=== PATIENT | female | born 1940 | race Caucasian/White ===

== ENCOUNTER → 2016-07-10 | Outpatient (CLI) | payer OTHER ==
[~2016-07-10] MED LIST: AMLO-114 PO; ASCO10003 PO; ASPI81TA21 PO; ATOR80TA PO; CARV12.5 PO; CARV6.252 PO; DIPH25TA24 PO; ESTROGEN TOP; FAMO20TA11 PO; KFL500HP PO; LOSA100T65 PO; METR-163 PO; MISCCAP80 PO; MULT-1027 PO; NITR0.4S UT; ONDA8TAB6 PO; PRLSR20 PO; PROC1TAB5 PO; TRAM-10 PO
--- NOTE | 2016-07-10 10:39 | DIAGNOSTIC IMAGING REPORT ---
DOUBLE CONTRAST UPPER GI SERIES CLINICAL HISTORY: Gastroparesis. COMPARISON STUDY: Upper GI series September 11, 2015. FLUOROSCOPY TIME: 1.4 minutes. FINDINGS: 23 fluoroscopic images were obtained. No esophageal mass or stricture was identified. No recurrent hiatal hernia is identified status post repair. Slight irregularity at the gastroesophageal junction is likely postsurgical. No extravasation was identified. There was mild to moderate reflux. Gastric fold pattern was normal. Gastric emptying appeared normal. Caliber of the duodenum and opacified jejunum was normal. IMPRESSION: 1. No recurrent hiatal hernia status post repair. Mild irregularity at the gastroesophageal junction is likely postsurgical. 2. [id number] reflux. Electronically signed by: Momo Araujo M.D. 07/10/2016 10:37 AM Dictated Date/Time: 07/10/2016 9:08 AM
== END | disposition home or self-care (01) ==
LOC: C.RAD 08:31
PROVIDERS: ATTEND Surgery
DX: K31.84 Gastroparesis (principal); K44.9 Diaphragmatic hernia without obstruction or gangrene

== ENCOUNTER 2017-01-27 11:18 | Day surgery (SDC) | payer OTHER ==
[2017-01-23 12:57] VITALS: BMI 21.0
[~2017-01-27] VITALS: Ht 157.5 cm; Wt 52.7 kg
[~2017-01-27 11:18] MED LIST changes: -AMLO-114 PO; -CARV6.252 PO; +CEFAZOLIN 2000 MG/60 ML D5W IV SCH; -KFL500HP PO; +LACTATED RINGER'S 1000ML 1,000 ML IV SCH; -LOSA100T65 PO; -MISCCAP80 PO; -PRLSR20 PO
[2017-01-27] MEDS ORDERED: KFL500HP PO (11:55)
[2017-01-27 12:06] VITALS: BP 142/92; PULSE 81; TEMP 36.6; O2SAT 98; Ht 157.5 cm; Wt 52.7 kg
[2017-01-27] MEDS ORDERED: MIDAZOLAM HCL 1 MG/ML 2ML VIAL ONE ×2 (12:17)
[2017-01-27] MEDS ORDERED: FENTANYL CITRATE INJ 50 MCG/1 ML 2 ML VIAL ONE (12:18)
--- NOTE | 2017-01-27 12:38 | History & Physical Bridge Note ---
H&P Re-Evaluation Bridge Note: I have examined the patient, reviewed the History & Physical and in the interval since the performance of the History & Physical I have noted the following changes of clinical significance: No changes noted
[2017-01-27] MEDS ORDERED: LIDOCAINE HCL 1% 20 ML VIAL ONE (12:52)
[2017-01-27] MEDS ORDERED: HEPARIN SOD (PORCINE) 1000 UNIT/ML 10 ML VIAL ONE (12:53)
[2017-01-27] MEDS ORDERED: BACITRACIN OINT 15 GM TUBE ONE (12:53)
[2017-01-27] MEDS ORDERED: BUPIVACAINE 0.5 % 5 MG/1 ML MPF 30ML VIAL ONE (12:53)
[2017-01-27] MEDS ORDERED: PROPOFOL IV EMULSION 10 MG/ML 20 ML VIAL IV ONE (13:54)
[2017-01-27] MEDS ORDERED: OXYCODONE/ACETAMINOPHEN 5-325 TAB PO PRN ×2 (14:15)
[2017-01-27] MEDS ORDERED: ONDANSETRON INJ 2 MG/ML 2 ML VIAL IV PRN (14:15)
[2017-01-27] MEDS ORDERED: SODIUM CHLORIDE 0.9% 1000ML 1,000 ML IV SCH (14:15)
--- NOTE | 2017-01-27 14:15 | [facility] Post Operative Brief Note ---
Immediate Operative Summary Operative Date Jan 27, 2017. Pre-Operative Diagnosis Pancreatic Cancer Post-Operative Diagnosis Pancreatic Cancer Procedure(s) Performed Infusaport Insertion, Right Internal Jugular vein Surgeon Dr. Oxana Auguste Drain Cleaner Plumber Surgeon(s) None per surgeon Estimated Blood Loss 5ml Findings patent Right internal jugular vein Fluids (cc crystalloids) 1000ml Specimens None per surgeon Drains none Anesthesia sedation + local Complication(s) None Disposition Recovery Room / PACU
--- NOTE | 2017-01-27 14:20 | Discharge Instructions ---
Discharge Instructions Date of Service Jan 27, 2017. Visit Reason for Visit: Pancreatic Cancer Discharge Discharge Diagnosis / Problem: S/P port placement Discharge Goals Goal(s): Decrease discomfort, Improve function Activity Recommendations Activity Limitations: per Instructions/Follow-up section Lifting Limitations: none Exercise/Sports Limitations: rest today May Resume Sexual Activity: when tolerated Shower/Bathe: may shower/bathe in 3 days Driving or Machine Use: resume 3 days after discharge Anesthesia . Post Anesthesia Instructions: If you have had General Anesthesia or IV Sedation: * Do not drive today. * Resume driving when surgeon permits. * Do not make important decisions or sign legal documents today. * Call surgeon for: 1. Temperature elevations greater than 101 degrees F. 2. Uncontrollable pain. 3. Excessive bleeding. 4. Persistent nausea and vomiting. 5. Medication intolerance (nausea, vomiting or rash). * For nausea and vomiting use only clear liquids such as: tea, soda, bouillon until nausea subsides, then gradually increase diet as tolerated. * If you have any concerns or questions, call your surgeon's office. If physician is unavailable and it is an emergency, call 911 or go to the nearest emergency room. . Instructions / Follow-Up Instructions / Follow-Up keep the dressing on for 4 days, she can take a shower on 01/31/2017, follow up 1 week, Diet Recommendations Recommended Home Diet: resume previous diet Procedures Procedures Performed: Infusaport Insertion, Right Internal Jugular vein Pending Studies Studies pending at discharge: no Medical Emergencies . Who to Call and When: Medical Emergencies: If at any time you feel your situation is an emergency, please call 911 immediately. . Non-Emergent Contact Non-Emergency issues call your: Surgeon Call Non-Emergent contact if: you have a fever, temperature is above 100.5, your pain is not controlled, your pain is worsening, wound has increased drainage, wound has increased redness . . "Provider Documentation" section prepared by Oxana Auguste. . [place] Drug Monitoring Program Search Results: no issues identified
--- NOTE | 2017-01-27 14:24 | Discharge Instructions ---
Discharge Instructions Date of Service Jan 27, 2017. Visit Reason for Visit: Pancreatic Cancer Discharge Discharge Diagnosis / Problem: S/P port placement Discharge Goals Goal(s): Decrease discomfort Activity Recommendations Activity Limitations: per Instructions/Follow-up section Lifting Limitations: none Exercise/Sports Limitations: rest today May Resume Sexual Activity: when tolerated Shower/Bathe: may shower/bathe in 3 days Driving or Machine Use: resume 3 days after discharge Anesthesia . Post Anesthesia Instructions: If you have had General Anesthesia or IV Sedation: * Do not drive today. * Resume driving when surgeon permits. * Do not make important decisions or sign legal documents today. * Call surgeon for: 1. Temperature elevations greater than 101 degrees F. 2. Uncontrollable pain. 3. Excessive bleeding. 4. Persistent nausea and vomiting. 5. Medication intolerance (nausea, vomiting or rash). * For nausea and vomiting use only clear liquids such as: tea, soda, bouillon until nausea subsides, then gradually increase diet as tolerated. * If you have any concerns or questions, call your surgeon's office. If physician is unavailable and it is an emergency, call 911 or go to the nearest emergency room. . Instructions / Follow-Up Instructions / Follow-Up keep the dressing on for 4 days, she can take a shower on 01/31/2017, follow up 1 week, , take po tylenol 650 mg po q6h prn for pain, only for 4 days, Diet Recommendations Recommended Home Diet: resume previous diet Procedures Procedures Performed: Infusaport Insertion, Right Internal Jugular vein Pending Studies Studies pending at discharge: no Medical Emergencies . Who to Call and When: Medical Emergencies: If at any time you feel your situation is an emergency, please call 911 immediately. . Non-Emergent Contact Non-Emergency issues call your: Surgeon . . "Provider Documentation" section prepared by Oxana Auguste. . [place] Drug Monitoring [place] Search Results: no issues identified
--- NOTE | 2017-01-27 14:47 | DIAGNOSTIC IMAGING REPORT ---
CHEST ONE VIEW PORTABLE CLINICAL HISTORY: to R/O PTX line position COMPARISON STUDY: 12/25/2015 FINDINGS: Central catheter place in superior vena cava. No evidence pneumothorax. Diaphragms smooth. Lungs are considered clear. IMPRESSION: 1. Central catheter place in superior vena cava. 2. No evidence of pneumothorax. 3. The lungs are clear. The above report was generated using voice recognition software. It may contain grammatical, syntax or spelling errors. Electronically signed by: Nathaniel Sanchez M.D. 01/27/2017 2:46 PM Dictated Date/Time: 01/27/2017 2:45 PM
[2017-01-27] MEDS ORDERED: LABETALOL HCL IV 5 MG/ML 20ML IV ONE (14:52)
[2017-01-27] MEDS ORDERED: LABETALOL HCL IV 5 MG/ML 20ML IV STA (14:56)
--- NOTE | 2017-01-27 14:56 | Anesthesiology Progress Note ---
Anesthesia Post Op Note Date & Time Jan 27, 2017 at 14:56 Vital Signs Pain Intensity: 0 Vital Signs Past 12 Hours Date Time Temp Pulse Resp B/P (MAP) Pulse Ox O2 Delivery O2 Flow Rate FiO2 01/27/17 14:45 73 12 190/82 98 Room Air 01/27/17 14:35 72 16 183/85 98 Room Air 01/27/17 14:25 72 18 168/84 100 Oxymask 10 01/27/17 14:15 36.0 75 12 178/80 100 Oxymask 10 01/27/17 12:06 36.6 81 18 142/92 (109) 98 Room Air Notes Mental Status: alert / awake / arousable, participated in evaluation Pt Amnestic to Procedure: Yes Nausea / Vomiting: adequately controlled Pain: adequately controlled Airway Patency, RR, SpO2: stable & adequate BP & HR: stable & adequate Hydration State: stable & adequate Anesthetic Complications: no major complications apparent
[2017-01-27 15:10] VITALS: BP 185/82; PULSE 68; TEMP 36.4; O2SAT 97
[2017-01-27 15:40] VITALS: BP 177/79; PULSE 69; TEMP 36.4; O2SAT 97
--- NOTE | 2017-01-28 04:57 | OPERATIVE REPORT ---
DATE OF OPERATION: 01/27/2017 PREOPERATIVE DIAGNOSIS: Pancreatic cancer. POSTOPERATIVE DIAGNOSIS: Same. PROCEDURE: Ports placed on the right internal jugular vein. SURGEON: Dr. Oxana Auguste. ANESTHESIA: Conscious sedation plus local. ESTIMATED BLOOD LOSS: About 5 mL. INTRAVENOUS FLUIDS: 1000 mL. COMPLICATIONS: None. FINDINGS: Patent right internal jugular vein. INDICATIONS FOR THE PROCEDURE: This is 76-year-old female who presents with diagnosis of pancreatic cancer and the patient will require chemotherapy, needed port placement. I did talk to the patient about the benefit and risk, alternate procedure. I indicated the risks may include but not limited such as infection, bleeding, blood clot, injury to the lung, injury to the vessel, nerves. The patient understands. She signed informed consent and I answered all questions. DETAILS OF PROCEDURE: We brought the patient to the OR and put the patient in the supine position. The patient received SCD on bilateral legs to prevent DVT and also we put the patient in the Trendelenburg position. The patient received conscious sedation by the anesthesiology. Then I used ultrasound to lara right internal jugular vein. Then the patient's right side of neck and right upper chest was prepped and draped in routine sterile fashion. After a timeout, I made a small incision on the right neck about a 0.5 cm incision and used ultrasound to locate the right internal jugular vein. We used a 15-gauge needle to puncture the vein without difficulty and easily blood returned and passed to the wire through the needle, removed the needle and used fluoro to locate the wire catheter located right SVC. Then, I injection local on the right upper chest to make about a 3 cm incision on the right upper chest to create a pouch for the port. Hemostasis was obtained. Then, I passed the dilator through to the incision and passed the catheter through the incisions right upper chest to the right neck. Then, I passed the sheath through the wire, used fluoro to locate the sheath located at SVC again and then we passed the catheter through this sheath and removed the sheath and wire and used fluoro to locate the catheter tip, located junction between the SVC to right atrium. Then, I passed the catheter and connected to the port using 2-0 Prolene to affix the port on the chest wall at 3 points, then closed subcutaneous layer by using 2-0 Vicryl continuous running, closed skin by using 4-0 Vicryl continuous running. Then I used the needle to puncture the port, easily blood returned and then I injection the heparin saline 10 mL used. Then we put the dressing on. The patient tolerated the procedure well. All the instruments, needle and sponge count correct x2 at the end of case. The patient transferred to recovery room in stable condition. After and before procedure, I gave patient the postop care instructions, the patient understands. I attest to the content of the Intraoperative Record and any orders documented therein. Any exceptions are noted below. SHAI
[2017-01-28] MEDS ORDERED: CEFAZOLIN IV 2,000 MG/60 ML D5W IV ONE (06:00)
== END 2017-01-27 16:00 | disposition home or self-care (01) ==
LOC: C.ACU 11:18
PROVIDERS: ATTEND Surgery
DX: C25.9 Malignant neoplasm of pancreas, unspecified (principal); M15.9 Polyosteoarthritis, unspecified; I25.10 Atherosclerotic heart disease of native coronary artery without angina pectoris; I10 Essential (primary) hypertension; I48.91 Unspecified atrial fibrillation; E78.5 Hyperlipidemia, unspecified; K44.9 Diaphragmatic hernia without obstruction or gangrene; Z85.828 Personal history of other malignant neoplasm of skin

== ENCOUNTER → 2017-01-31 | Outpatient (CLI) | payer OTHER ==
[~2017-01-31] MED LIST changes: -CEFAZOLIN 2000 MG/60 ML D5W IV SCH; +KFL500HP PO; -LACTATED RINGER'S 1000ML 1,000 ML IV SCH; -METR-163 PO
--- NOTE | 2017-01-31 17:15 | DIAGNOSTIC IMAGING REPORT ---
ULTRASOUND BILATERAL LOWER EXTREMITY VENOUS CLINICAL HISTORY: Lower extremity edema. COMPARISON STUDY: No priors. TECHNIQUE: Real-time, grayscale, and color Doppler sonography of the deep veins of the right and left lower extremity was performed from the inguinal crease to the calf. Compression and augmentation were utilized. FINDINGS: There is no sonographic evidence of deep venous thrombosis identified in the right or left lower extremity. The common femoral, superficial femoral, and popliteal veins are patent and normally compressible bilaterally. The greater saphenous vein and the profunda femoris vein at the junction with the common femoral vein are clear in both legs. The visualized calf veins are patent bilaterally. IMPRESSION: There is no sonographic evidence of deep venous thrombosis identified in the right or left lower extremity. Electronically signed by: Luiz Garcia M.D. 01/31/2017 5:14 PM Dictated Date/Time: 01/31/2017 5:13 PM
== END | disposition home or self-care (01) ==
LOC: C.ULTR 16:29
PROVIDERS: ATTEND Internal Medicine Hematology & Oncology
DX: C25.0 Malignant neoplasm of head of pancreas (principal); R60.0 Localized edema

== ENCOUNTER 2017-07-14 15:55 | Emergency (ER) | payer OTHER ==
[2017-07-15] MEDS ORDERED: FURO-85 PO (11:22)
[2017-07-15] MEDS ORDERED: PANC6000 PO (14:50)
[2017-07-15] MEDS ORDERED: CRG25 PO (14:50)
[2017-07-15] MEDS ORDERED: MISCCAP80 PO (14:50)
[2017-07-15] MEDS ORDERED: POTA-74 PO (14:50)
[2017-07-15] MEDS ORDERED: ATOR-24 PO (14:50)
[2017-07-15] MEDS ORDERED: SPIR50TA2 PO (14:50)
== END 2017-07-14 16:30 | disposition left against medical advice (07) ==
LOC: C.EDB 15:56
DX: R06.02 Shortness of breath (principal)

== ENCOUNTER 2017-07-15 09:50 | Inpatient (IN) | payer OTHER ==
[~2017-07-15] VITALS: Ht 157.5 cm; Wt 55.5 kg
[2017-07-15] MEDS ORDERED: DiphenhydrAMINE HCL 50 MG/ML VIAL IV STA (10:18)
[2017-07-15] MEDS ORDERED: METHYLPREDNISOLONE 125 MG VIAL IV STA (10:18)
[2017-07-15] MEDS ORDERED: ONDANSETRON INJ 2 MG/ML 2 ML VIAL IV STA (10:18)
[2017-07-15] MEDS ORDERED: OPTIRAY 320 IV PRN (10:30)
--- NOTE | 2017-07-15 10:30 | EMERGENCY ROOM VISIT NOTE ---
History Report prepared by Ollie: Corbin Parker Under the Supervision of: Dr. Luiz Aguilar M.D. First contact with patient: 10:05 Chief Complaint: SHORTNESS OF BREATH Stated Complaint: HARD TO BREATH-LIQUID IN STOMACH & LUNGS History of Present Illness The patient is a 77 year old female who presents to the Emergency Room with complaints of worsening shortness of breath that began last month. She has a past medical history of pancreatic cancer and is currently being treated with chemotherapy. She denies any known history of any lung disease and is not on any oxygen. Over the past month, the patient has been having trouble with her respiratory system. Her shortness of breath worsens with exertion. She has been experiencing an increased cough with phlegm production as well. She also has some intermittent chest pains, but has not used any Nitroglycerin for the pain. She denies any fevers, nausea, or vomiting. She has baseline uncontrolled diarrhea secondary to her cancer treatments. She notes that she has fluid to her abdomen and may possibly have fluid to her lungs. She is scheduled to have a paracentesis procedure in three days. She also notes that she has recently been gaining weight and believes it to be from the fluid build up. She takes a baby Aspirin daily, but has not taken it since last week. Source of History: patient Onset: 1 month ago Position: other (Respiratory System) Symptom Intensity: moderate Quality: other (Shortness of breath) Timing: worsening Modifying Factors (Worsening): exertion Associated Symptoms: + cough, + chest pain (intermittent), + diarrhea ( secondary to cancer treatment), No fevers, No nausea, No vomiting Review of Systems See HPI for pertinent positives & negatives. A total of 10 systems reviewed and were otherwise negative. Past Medical & Surgical Medical Problems: (1) Ascites (2) Asthma, Unspecified (3) CAD (coronary artery disease) (4) Coronary artery disease (5) Diverticulitis of colon (6) Dyslipidemia (7) GERD (gastroesophageal reflux disease) (8) GERD (gastroesophageal reflux disease) (9) History of left heart catheterization (LHC) (10) HLD (hyperlipidemia) (11) HTN (hypertension) (12) Hypertension Nos (13) Recurrent UTI (14) Renal artery stenosis (15) TIA (transient ischemic attack) (16) Urin Tract Infection Nos Surgical Problems: (1) H/O colonoscopy (2) H/O esophagogastroduodenoscopy (3) H/O hernia repair (4) History of repair of hiatal hernia (5) History of total abdominal hysterectomy (6) Hx of appendectomy (7) Hx of foot surgery (8) Percutaneous transluminal coronary angioplasty (9) Renal artery stenosis Family History Cancer Diabetes mellitus FH: heart disease Hypertension Kidney stones Social History Smoking Status: Former Smoker Alcohol Use: none Drug Use: none Marital Status: Housing Status: lives with significant other Occupation Status: retired Current/Historical Medications Scheduled Ascorbic Acid (Vitamin C), 1,000 MG PO BID Aspirin Enteric Coated (Ecotrin Or Generic), 81 MG PO QPM Atorvastatin (Lipitor), 40 MG PO DAILY Carvedilol (Carvedilol), 12.5 MG PO BID Furosemide (Lasix), 20 MG PO DAILY Multiple Vitamin (Multi Vitamin), 1 TAB PO QAM Pancrelipase (Lipase-Protease- (Creon), 1 CAP PO QID Potassium Chloride (Potassium Chloride Er), 10 MEQ PO DAILY Probiotic Product (Probiotic), 1 CAP PO DAILY Spironolactone (Aldactone), 50 MG PO DAILY Scheduled PRN Diphenhydramine Hcl (Benadryl), 25 MG PO HS PRN for Sleep Nitroglycerin (Nitrostat), 0.4 MG UT UD PRN for Chest Pain Ondansetron Hcl (Zofran), 8 MG PO PRN PRN for Nausea Tramadol (Ultram), 50 MG PO Q8H PRN for Pain Allergies Coded Allergies: Adhesives (Verified Allergy, Unknown, SURGICAL TAPE, 07/15/17) Ciprofloxacin (Verified Allergy, Unknown, Itching, 07/15/17) Reported by PT Cortisone (Verified Adverse Reaction, Intermediate, FLUSHED, NAUSEA, ) Codeine (Verified Adverse Reaction, Unknown, DIZZINESS, NAUSEA AND VOMITING, 07/15/17) Iodinated Diagnostic Agents (Verified Adverse Reaction, Unknown, N/V, 07/15) Lisinopril (Verified Adverse Reaction, Unknown, Cough, 07/15/17) Reported by PT Morphine and Related (Verified Adverse Reaction, Unknown, Nausea,vomiting and neuro complications., 07/15/17) Reported by PT Nitrofurantoin (Verified Adverse Reaction, Unknown, Nausea,vomiting and headache., 07/15/17) Reported by PT Physical Exam Vital Signs Date Time Temp Pulse Resp B/P (MAP) Pulse Ox O2 Delivery O2 Flow Rate FiO2 07/15/17 13:57 94 18 182/83 94 Room Air 07/15/17 12:52 82 18 174/79 95 Room Air 07/15/17 11:41 92 18 186/86 97 Room Air 07/15/17 10:26 113 07/15/17 10:15 96 Room Air 07/15/17 10:01 36.5 116 20 147/81 96 Room Air Physical Exam GENERAL: Patient is in no acute distress. HEENT: No acute trauma, normocephalic atraumatic, mucous membranes moist, no nasal congestion, no scleral icterus. NECK: No stridor, no adenopathy, no meningismus, trachea is midline. LUNGS: Clear to auscultation bilaterally, no wheeze, no rhonchi, breath sounds equal. HEART: Tachycardic rate with a slightly irregular rhythm. Without murmurs gallops or rubs. ABDOMEN: Soft, tender to the epigastrium and the upper quadrants, bowel sounds positive, no hernias, no peritonitis. EXTREMITIES: No cyanosis, full range of motion of all the joints without pain or difficulty, no signs for acute trauma. Moderate bilateral pedal edema. NEUROLOGIC: Oriented x 3, no acute motor or sensory deficits, no focal weakness. SKIN: No rash, no jaundice, no diaphoresis. Medical Decision & Procedures ER Provider Diagnostic Interpretation: Radiology results as stated below per my review and radiologist interpretation: CHEST CT, No IV Contrast, 07/08/2017 Comparison 01/24/2017 IMPRESSION: 1. Volume overload with third spacing evidenced by bilateral pleural effusion, ascites and body wall edema. No significant pulmonary edema. 2. Stable chronic and incidental findings as above. MRI ABDOMEN-LIVER WITH/WITHOUT CONTRAST, 2017 IMPRESSION: Moderate bilateral pleural effusions, large ascites, and anasarca, increased compared to 04/30/2017. Hepaticojejunostomy without distended ducts to imply associated obstruction. Benign-appearing liver lesion. Probable tiny cysts in the inferior right liver, too small to characterize; attention on follow up. Postsurgical changes of Whipples procedure. No findings concerning for recurrence at the pancreatectomy bed; contrast enhanced CT may better evaluate this region. Hepatic steatosis. No overt cirrhoisis. Indeterminate T2 hyperintense lesion in L3, favoring a hemangioma given a likely correlate is present on the 11/01/2016 CT. VENOUS DUPLEX COMP BILAT LOWER, 06/26/2017 IMPRESSION: No right or left lower extremity deep vein thrombosis. Findings related to Adam[place] by Laura Frederick at time of examination on June 26, 2017. CHEST ONE VIEW PORTABLE CLINICAL HISTORY: 77 years-old Female presenting with EVALUATE RESPIRATORY DISTRESS.DYSPNEA. TECHNIQUE: Portable upright AP view of the chest was obtained. COMPARISON: 01/27/2017. FINDINGS: Right internal jugular Mediport terminates in the mid SVC. Atherosclerosis of aortic arch. Cardiac silhouette normal in size allowing for mildly low lung volumes and hypoventilatory changes. Minimal bibasilar opacities. Apical calcified granulomas may be present. No other focal infiltrate. Trace pleural effusions cannot be excluded. No pneumothorax. Osseous structures normal. Cholecystectomy clips noted. IMPRESSION: 1. Mildly low lung volumes with hypoventilatory changes and suspected bibasilar atelectasis. 2. Trace pleural effusions may be present. Electronically signed by: Oz Betts M.D. 07/15/2017 10:41 AM Dictated Date/Time: 07/15/2017 10:[address] ANGIOGRAPHY OF THE CHEST, PULMONARY EMBOLUS PROTOCOL CLINICAL HISTORY: Chest pain. Difficulty breathing. COMPARISON STUDY: Chest CT March 13, 2011 and chest radiograph July 15, 2017. TECHNIQUE: The patient was premedicated for IV dye allergy. Following IV administration of 64 mL of Optiray-320, helical axial images of the chest were obtained utilizing the pulmonary embolus protocol. Maximal intensity projections and sagittal and coronal reformats were viewed on an independent 3D workstation. IV contrast was administered without complication. A dose lowering technique was utilized adhering to the principles of ALARA. CT DOSE: 162.06 mGy.cm FINDINGS: No pulmonary emboli are identified. There is no evidence of thoracic aortic dissection. The heart is mildly enlarged. Coronary stent is noted. There is no thoracic aortic dissection. There is no pericardial effusion. Moderate bilateral pleural effusions are noted. Associated airspace opacity reflects atelectasis. There is no consolidation to suggest pneumonia. There is no pneumothorax. There are no suspicious pulmonary nodules. Bony thorax is unremarkable. Visualized portions of the upper abdomen demonstrate suspected pneumobilia. There is a large amount of ascites within visualized portions of the upper abdomen. Generalized anasarca is noted. IMPRESSION: 1. No pulmonary emboli identified. 2. No thoracic aortic dissection. 3. Moderate bilateral pleural effusions with associated segmental atelectasis. 4. Generalized anasarca and large ascites within visualized portions of the upper abdomen. Electronically signed by: Momo Araujo M.D. 07/15/2017 12:45 PM Dictated Date/Time: 07/15/2017 12:36 PM Laboratory Results 07/15/17 10:54 Red Blood Count 3.20, Mean Corpuscular Volume 110.3, Mean Corpuscular Hemoglobin 36.3, Mean Corpuscular Hemoglobin Concent 32.9, Mean Platelet Volume 10.2, Neutrophils (%) (Auto) 62.0, Lymphocytes (%) (Auto) 18.4, Monocytes (%) ( Auto) 16.9, Eosinophils (%) (Auto) 1.9, Basophils (%) (Auto) 0.8, Neutrophils # (Auto) 3.92, Lymphocytes # (Auto) 1.16, Monocytes # (Auto) 1.07, Eosinophils # ( Auto) 0.12, Basophils # (Auto) 0.05 07/15/17 10:54 Test 07/15/17 10:54 White Blood Count 6.32 K/uL (4.8-10.8) Red Blood Count 3.20 M/uL (4.2-5.4) Hemoglobin 11.6 g/dL (12.0-16.0) Hematocrit 35.3 % (37-47) Mean Corpuscular Volume 110.3 fL (80-100) Mean Corpuscular Hemoglobin 36.3 pg (25-34) Mean Corpuscular Hemoglobin Concent 32.9 g/dl (32-36) Platelet Count 249 K/uL (130-400) Mean Platelet Volume 10.2 fL (7.4-10.4) Neutrophils (%) (Auto) 62.0 % Lymphocytes (%) (Auto) 18.4 % Monocytes (%) (Auto) 16.9 % Eosinophils (%) (Auto) 1.9 % Basophils (%) (Auto) 0.8 % Neutrophils # (Auto) 3.92 K/uL (1.4-6.5) Lymphocytes # (Auto) 1.16 K/uL (1.2-3.4) Monocytes # (Auto) 1.07 K/uL (0.11-0.59) Eosinophils # (Auto) 0.12 K/uL (0-0.5) Basophils # (Auto) 0.05 K/uL (0-0.2) RDW Standard Deviation 100.5 fL (36.4-46.3) RDW Coefficient of Variation 25.0 % (11.5-14.5) Immature Granulocyte % (Auto) 0.0 % Immature Granulocyte # (Auto) 0.00 K/uL (0.00-0.02) Toxic Vacuolation 1+ Anisocytosis PRESENT Macrocytosis PRESENT Prothrombin Time 12.3 SECONDS (9.0-12.0) Prothromb Time International Ratio 1.2 (0.9-1.1) Activated Partial Thromboplast Time 24.6 SECONDS (21.0-31.0) Partial Thromboplastin Ratio 0.9 Anion Gap 8.0 mmol/L (3-11) Est Creatinine Clear Calc Drug Dose 36.1 ml/min Estimated GFR () 62.1 Estimated GFR (Non- 53.5 BUN/Creatinine Ratio 11.4 (10-20) Calcium Level 7.9 mg/dl (8.5-10.1) Magnesium Level 2.0 mg/dl (1.8-2.4) Total Bilirubin 0.6 mg/dl (0.2-1) Aspartate Amino Transf (AST/SGOT) 135 U/L (15-37) Alanine Aminotransferase (ALT/SGPT) 77 U/L (12-78) Alkaline Phosphatase 227 U/L (45-117) Troponin I 0.051 ng/ml (0-0.045) Total Protein 5.0 gm/dl (6.4-8.2) Albumin 2.2 gm/dl (3.4-5.0) Globulin 2.8 gm/dl (2.5-4.0) Albumin/Globulin Ratio 0.8 (0.9-2) Laboratory results reviewed by me. Medications Administered Medications (Trade) Dose Ordered Sig/Shakira Route Start Time Stop Time Status Last Admin Dose Admin Methylprednisolone Sodium Succinate (Solu-Medrol IV) 80 mg NOW STAT IV 07/15/17 10:18 07/15/17 10:21 DC 07/15/17 11:40 80 MG Diphenhydramine HCl (Benadryl Inj) 25 mg NOW STAT IV 07/15/17 10:18 07/15/17 10:21 DC 07/15/17 11:40 25 MG Ondansetron HCl (Zofran Inj) 4 mg NOW STAT IV 07/15/17 10:18 07/15/17 10:21 DC 07/15/17 11:40 4 MG ECG Indication: SOB/dyspnea Rate (beats per minute): 106 Rhythm: sinus tachycardia Findings: PAC, other (baseline artifact, no obvious ischemia) Change: ECG interpreted by me ED Course 1005: The patient was evaluated in room B11. A complete history and physical exam was performed. 1015: I spoke with Dr. Maynard of Oncology at this time. She said that her CT scan was noncontrast and showed she had a lot of third spacing of fluid in her belly and around her lungs. She has a paracentesis scheduled for Friday. She states that we could CTA her chest to check for PE's. 1018: Ordered Zofran Inj 4 mg IV, Benadryl Inj 25 mg IV, Solu-Medrol IV 80 mg IV 1312: Upon reexamination the patient is resting. I discussed results and treatment plan with the patient. She verbalizes agreement and understanding. [facility] We discussed the patient's results and findings. The patient will be evaluated by her for further management. Medical Decision Differential diagnosis includes but is not limited to cardiac ischemia, CA, PE, pericardial effusion, pleural effusion, CHF, pneumonia, anemia, electrolyte imbalance, and worsening pancreatic cancer. There is no leukocytosis or concerning anemia. No coagulopathy. No significant electrolyte abnormality or kidney failure. There were a few mild liver enzyme elevations. Chest x-ray shows some potential atelectasis and maybe some effusions, no pneumonia, CHF or pneumothorax. EKG shows a sinus tachycardia with PACs, no acute ischemia. Cardiac troponin was slightly elevated indicating some cardiac strain. Chest CT does not show PE, moderate pleural effusions were seen. The patient presents with increasing dyspnea, she has known pancreatic cancer. She did receive IV Solu-Medrol, IV Benadryl and IV Zofran as premedication before her CT scan-she had a dye allergy. The patient is hypertensive but asymptomatic with the value, she is comfortable and breathing easily as long as she is still. Her dyspnea is with exertion. Given the worsening dyspnea, given the effusions, given the troponin elevation, further time in the hospital was felt warranted. I did speak to the patient and case management. The on-call hospitalist was consulted. Medication Reconcilliation Current Medication List: was personally reviewed by me Blood Pressure Screening Patient's blood pressure: Elevated blood pressure Referred to the hospitalist Consults Time Called: 1010 Consulting Physician: Karlos Farnsworth Returned Call: [phone] We discussed the patient's case. Please see the ED course for further detail. Additional Consults: Time Called: 1308 Consulted Physician: Isabel Everett Hospitalist Service Returned Call: [phone] Additional Comments: Discussed the patient's case. The patient will be evaluated for further management. Impression Primary Impression: SOB (shortness of breath) Additional Impressions: Pleural effusion Tachycardia Elevated troponin Scribe Attestation The scribe's documentation has been prepared under my direction and personally reviewed by me in its entirety. I confirm that the note above accurately reflects all work, treatment, procedures, and medical decision making performed by me. Departure Information Dispostion Being Evaluated By Hospitalist Referrals Gregg Hanna D.O. (PCP) Patient Instructions My [facility] Problem Qualifiers
--- NOTE | 2017-07-15 10:42 | DIAGNOSTIC IMAGING REPORT ---
CHEST ONE VIEW PORTABLE CLINICAL HISTORY: 77 years-old Female presenting with EVALUATE RESPIRATORY DISTRESS.DYSPNEA. TECHNIQUE: Portable upright AP view of the chest was obtained. COMPARISON: 01/27/2017. FINDINGS: Right internal jugular Mediport terminates in the mid SVC. Atherosclerosis of aortic arch. Cardiac silhouette normal in size allowing for mildly low lung volumes and hypoventilatory changes. Minimal bibasilar opacities. Apical calcified granulomas may be present. No other focal infiltrate. Trace pleural effusions cannot be excluded. No pneumothorax. Osseous structures normal. Cholecystectomy clips noted. IMPRESSION: 1. Mildly low lung volumes with hypoventilatory changes and suspected bibasilar atelectasis. 2. Trace pleural effusions may be present. Electronically signed by: Oz Betts M.D. 07/15/2017 10:41 AM Dictated Date/Time: 07/15/2017 10:39 AM
[2017-07-15 11:10] LABS: BASO % 0.8 %; BASO ABS # 0.05 K/uL (0-0.2); EOS % 1.9 %; EOS ABS # 0.12 K/uL (0-0.5); HEMATOCRIT 35.3 % (37-47); HEMOGLOBIN 11.6 g/dL (12.0-16.0); LYMPH % 18.4 %; LYMPH ABS # 1.16 K/uL (1.2-3.4); MEAN CELL VOLUME 110.3 fL (80-100); MEAN CORPUSCULAR HEMOGLOBIN 36.3 pg (25-34); MEAN CORPUSCULAR HGB CONC 32.9 g/dl (32-36); MEAN PLATELET VOLUME 10.2 fL (7.4-10.4); MONO % 16.9 %; MONO ABS # 1.07 K/uL (0.11-0.59); NEUT ABS # 3.92 K/uL (1.4-6.5); PLATELET COUNT 249 K/uL (130-400); RED CELL DISTRIBUTION WIDTH SD 100.5 fL (36.4-46.3); WHITE BLOOD COUNT 6.32 K/uL (4.8-10.8)
[2017-07-15 11:21] LABS: INR 1.2 (0.9-1.1); PTT PATIENT 24.6 SECONDS (21.0-31.0)
[2017-07-15] MEDS ORDERED: FURO-85 PO (11:22)
[2017-07-15 11:30] LABS: ALBUMIN 2.2 gm/dl (3.4-5.0); CALCIUM 7.9 mg/dl (8.5-10.1); POTASSIUM 3.3 mmol/L (3.5-5.1)
--- NOTE | 2017-07-15 12:46 | DIAGNOSTIC IMAGING REPORT ---
CT ANGIOGRAPHY OF THE CHEST, PULMONARY EMBOLUS PROTOCOL CLINICAL HISTORY: Chest pain. Difficulty breathing. COMPARISON STUDY: Chest CT March 13, 2011 and chest radiograph July 15, 2017. TECHNIQUE: The patient was premedicated for IV dye allergy. Following IV administration of 64 mL of Optiray-320, helical axial images of the chest were obtained utilizing the pulmonary embolus protocol. Maximal intensity projections and sagittal and coronal reformats were viewed on an independent 3D workstation. IV contrast was administered without complication. A dose lowering technique was utilized adhering to the principles of ALARA. CT DOSE: 162.06 mGy.cm FINDINGS: No pulmonary emboli are identified. There is no evidence of thoracic aortic dissection. The heart is mildly enlarged. Coronary stent is noted. There is no thoracic aortic dissection. There is no pericardial effusion. Moderate bilateral pleural effusions are noted. Associated airspace opacity reflects atelectasis. There is no consolidation to suggest pneumonia. There is no pneumothorax. There are no suspicious pulmonary nodules. Bony thorax is unremarkable. Visualized portions of the upper abdomen demonstrate suspected pneumobilia. There is a large amount of ascites within visualized portions of the upper abdomen. Generalized anasarca is noted. IMPRESSION: 1. No pulmonary emboli identified. 2. No thoracic aortic dissection. 3. Moderate bilateral pleural effusions with associated segmental atelectasis. 4. Generalized anasarca and large ascites within visualized portions of the upper abdomen. Electronically signed by: Momo Araujo M.D. 07/15/2017 12:45 PM Dictated Date/Time: 07/15/2017 12:36 PM
[2017-07-15] MEDS ORDERED: POLYETHYLENE (MIRALAX) 17 GM PACK PO PRN (14:15)
[2017-07-15] MEDS ORDERED: ONDANSETRON INJ 2 MG/ML 2 ML VIAL IV PRN (14:15)
[2017-07-15] MEDS ORDERED: ACETAMINOPHEN 325 MG TAB PO PRN (14:15)
[2017-07-15] MEDS ORDERED: NITROGLYCERIN 0.4 MG SL PER TAB CHARGE SL PRN (14:15)
[2017-07-15] MEDS ORDERED: POTASSIUM CHLORIDE 20 MEQ TABCR PO STA (14:24)
[2017-07-15] MEDS ORDERED: SPIR50TA2 PO (14:50)
[2017-07-15] MEDS ORDERED: MISCCAP80 PO (14:50)
[2017-07-15] MEDS ORDERED: PANC6000 PO (14:50)
[2017-07-15] MEDS ORDERED: ATOR-24 PO (14:50)
[2017-07-15] MEDS ORDERED: POTA-74 PO (14:50)
[2017-07-15] MEDS ORDERED: CRG25 PO (14:50)
[2017-07-15] MEDS ORDERED: POTASSIUM CHLORIDE 10 MEQ TABCR ONE (14:59)
[2017-07-15] MEDS ORDERED: CARVEDILOL 12.5 MG TAB PO ONE (15:00)
[2017-07-15] MEDS ORDERED: TRAMADOL HCL 50 MG TAB PO PRN (15:00)
[2017-07-15 16:00] VITALS: BP 174/90; TEMP 36.5; O2SAT 93; BMI 23.4
[2017-07-15 16:01] VITALS: BP 174/90; PULSE 90; TEMP 36.5; O2SAT 93
[2017-07-15] MEDS ORDERED: ALBUMIN 25% 50 ML with FUROSEMIDE INJ 40 MG IV ONE ×2 (16:30)
[2017-07-15] MEDS ORDERED: PANCRELIPASE PO SCH (17:00)
--- NOTE | 2017-07-15 17:44 | Progress Note ---
Progress Note Date of Service Jul 15, 2017. Progress Note This is a 77 year old female with a PMH of CAD s/p stents, paroxysmal A. fib refused anticoagulation in the past, HTN, HLD, hx. of TIAs, pancreatic CA ongoing chemotherapy with complications including ascites and pleural effusion - presents with worsening abdominal swelling; leg swelling and shortness of breath. Was seen by Hem/Onc 7-10 days ago and was told that they would be stopping chemotherapy due to her ascites and pleural effusion - was seen by GI and Lasix + Aldactone were started with no help. Currently, resting comfortably ; +shortness of breath, +cough, +abdominal distention/swelling, +lower extremity swelling, denies chest pain, denies fevers/chills. VITALS: Last Vital Signs Documentation Date Time Temp Pulse Resp B/P (MAP) Pulse Ox O2 Delivery O2 Flow Rate FiO2 07/15/17 16:01 36.5 90 18 174/90 (118) 93 Room Air GEN: no acute distress HEENT: NC/AT CVS: +S1, S2, RRR LUNGS: diminished breath sounds, b/l bases ABD: +distended, +firm, normoactive bowel sounds EXT: +2 pitting edema b/l LE NEURO: no focal deficits Ascites likely secondary to chemotherapy for pancreatic CA was recently started on Lasix 20mg and Aldactone 50mg with no help will give IV albumin and Lasix x1 for now monitor electrolytes and kidney function will likely need diagnostic/therapeutic paracentesis in AM low sodium diet GI consultation for further input Hepatic Hydrothorax patient with pleural effusion, CT of chest suggests moderate bilateral effusions await paracentesis and monitor effusions after that is done continue diuretics if persistent effusions - may need pulmonary input for possible thoracentesis Mild Troponin Elevation CAD s/p stents no current chest pain mild elevation of troponin, likely secondary to fluid overload continue aspirin, statin, b-donnie trend enzymes recent echo showing normal LVEF, mild diastolic dysfunction Paroxysmal A. Fib currently in NSR refused anticoagulation in the past HTN history of labile hypertension hx. of renal artery stenosis s/p stenting monitor BP with diuretic use DVT ppx SCDs DNR
[2017-07-15 17:55] VITALS: BP 114/72; PULSE 81; TEMP 36.4; O2SAT 91
[2017-07-15 18:27] VITALS: BP 111/70; PULSE 81; TEMP 36.3; O2SAT 93
--- NOTE | 2017-07-15 18:56 | History and Physical ---
History & Physical Date & Time of Service: Jul 15, 2017 at 18:14 Chief Complaint: Ascites, Sob Primary Care Physician: Gregg Hanna D.O. History of Present Illness Source: patient, spouse, clinic records, hospital records Pt is 77 y/o F with PMH HTN, GERD, a-fib, CAD s/p stent, pancreatic CA receiving chemo, last dose 06/26/17 presented to ER with c/o increasing SOB and increasing edema. Pt reports past month with increased SOB and increased LE edema and noted larger abdomen. SOB with few steps now. Following with Dr Maynard - oncology and [facility]. Was scheduled to have paracentesis in 3 days. She reports non-productive cough x 1-2 weeks. Reports gained approx 25 pounds over past 1-2 months. She has had lasix increased to 20mg daily and spironolactone 50mg daily added and pt states no improvement of edema or SOB. Hx chronic intermittent diarrhea, denies any increased diarrhea. Denies melena, or hematochezia. Denies fever/chills, diaphoresis, N/V, ZAPIEN, dizziness, syncope, vision changes, neck pain, CP, orthopnea, palpitations, sore throat, choking, otalgia, rhinorrhea, abdominal pain, paresthesias, weakness, extremity weakness , extremity edema, rashes, urinary symptoms. In ER WBC: 6, K: 3.3. AST: 135, Alk phos: 227. Troponin 0.051. INR: 1.2. CT chest: no PE, mod bilateral pleural effusions, large ascites, generalized anasarca. 06/30/17: Hx MRI abd/liver with/without contrast: Moderate bilateral pleural effusions, large ascites, anasarca. benign appearing liver lesions. hepatitic stenosis. indeterminate T2 hyperintense lesion in L3, favoring a hemangioma given a likely correlate is present on 11/01/16 CT. Past Medical/Surgical History Medical Problems: (1) Asthma, Unspecified Status: Chronic (2) CAD (coronary artery disease) Status: Chronic (3) Coronary artery disease Status: Chronic (4) Diverticulitis of colon Status: Resolved (5) Dyslipidemia Status: Chronic (6) GERD (gastroesophageal reflux disease) Status: Chronic (7) GERD (gastroesophageal reflux disease) Status: Chronic (8) History of left heart catheterization (LHC) Permanent Comment: status post PCI to the LAD with a BURT in [place], circa July 2008. Status: Chronic (9) HLD (hyperlipidemia) Status: Chronic (10) HTN (hypertension) Status: Chronic (11) Hypertension Nos Status: Chronic (12) Pancreatic cancer Status: Chronic (13) Recurrent UTI Status: Chronic (14) Renal artery stenosis Permanent Comment: s.p stent Status: Chronic (15) TIA (transient ischemic attack) Status: Chronic (16) Urin Tract Infection Nos Status: Chronic Surgical Problems: (1) H/O colonoscopy Status: Chronic (2) H/O esophagogastroduodenoscopy Status: Chronic (3) H/O hernia repair Status: Chronic (4) History of pancreatic surgery Permanent Comment: Hx Whipple procedure - 11/2016. Dr Johnson [facility] [place] Status: Resolved (5) History of repair of hiatal hernia Status: Chronic (6) History of stent insertion of renal artery Status: Resolved (7) History of tonsillectomy and adenoidectomy Status: Resolved (8) History of total abdominal hysterectomy Status: Chronic (9) Hx of appendectomy Status: Chronic (10) Hx of foot surgery Status: Chronic (11) Percutaneous transluminal coronary angioplasty Status: Resolved (12) Renal artery stenosis Status: Resolved Family History Cancer Diabetes mellitus FH: heart disease Hypertension Kidney stones Social History Smoking Status: Former Smoker (Quit 1999. smoked 1ppd x 15 years) Smokeless Tobacco Use: No Alcohol Use: none Drug Use: none Marital Status: Housing status: lives with family Occupational Status: retired Immunizations History of Influenza Vaccine: N/A History of Tetanus Vaccine?: UTD History of Pneumococcal: Yes History of Hepatitis B Vaccine: No Allergies Coded Allergies: Adhesives (Verified Allergy, Unknown, SURGICAL TAPE, 07/15/17) Ciprofloxacin (Verified Allergy, Unknown, Itching, 07/15/17) Reported by PT Cortisone (Verified Adverse Reaction, Intermediate, FLUSHED, NAUSEA, ) Codeine (Verified Adverse Reaction, Unknown, DIZZINESS, NAUSEA AND VOMITING, 07/15/17) Iodinated Diagnostic Agents (Verified Adverse Reaction, Unknown, N/V, 07/15) Lisinopril (Verified Adverse Reaction, Unknown, Cough, 07/15/17) Reported by PT Morphine and Related (Verified Adverse Reaction, Unknown, Nausea,vomiting and neuro complications., 07/15/17) Reported by PT Nitrofurantoin (Verified Adverse Reaction, Unknown, Nausea,vomiting and headache., 07/15/17) Reported by PT Home Medications Scheduled Ascorbic Acid (Vitamin C), 1,000 MG PO BID Aspirin Enteric Coated (Ecotrin Or Generic), 81 MG PO QPM Atorvastatin (Lipitor), 40 MG PO DAILY Carvedilol (Carvedilol), 12.5 MG PO BID Furosemide (Lasix), 20 MG PO DAILY Multiple Vitamin (Multi Vitamin), 1 TAB PO QAM Pancrelipase (Lipase-Protease- (Creon), 1 CAP PO QID Potassium Chloride (Potassium Chloride Er), 10 MEQ PO DAILY Probiotic Product (Probiotic), 1 CAP PO DAILY Spironolactone (Aldactone), 50 MG PO DAILY Scheduled PRN Diphenhydramine Hcl (Benadryl), 25 MG PO HS PRN for Sleep Nitroglycerin (Nitrostat), 0.4 MG UT UD PRN for Chest Pain Ondansetron Hcl (Zofran), 8 MG PO PRN PRN for Nausea Tramadol (Ultram), 50 MG PO Q8H PRN for Pain Review of Systems Constitutional: No fever, No chills, No sweats Eyes: No eye pain, No redness, No discharge, No diplopia ENT: No hearing loss, No unusual epistaxis, No nasal symptoms, No sore throat, No tinnitus, No trouble swallowing Respiratory: + shortness of breath (see HPI), + dyspnea on exertion, No wheezing, No dyspnea at rest, No hemoptysis Cardiovascular: + edema (see HPI), No chest pain, No orthopnea, No PND, No palpitations Abdomen: + problem reported (see HPI) Musculoskeletal: No joint pain, No muscle pain Genitourinary - Female: No dysuria, No urinary frequency, No urinary urgency, No urinary incontinence, No urinary retention, No hematuria Neurologic: No numbness/tingling, No vertigo Endocrine: No excessive thirst, No excessive urination Hematologic / Lymphatic: No abnormal bleeding/bruising Integumentary: No rash, No itch Physical Exam Vital Signs Date Time Temp Pulse Resp B/P (MAP) Pulse Ox O2 Delivery O2 Flow Rate FiO2 07/15/17 17:55 36.4 81 18 114/72 (86) 91 Room Air 07/15/17 16:01 36.5 90 18 174/90 (118) 93 Room Air 07/15/17 16:00 36.5 18 174/90 93 Room Air 07/15/17 14:49 93 20 179/86 93 Room Air 07/15/17 13:57 94 18 182/83 94 Room Air 07/15/17 12:52 82 18 174/79 95 Room Air 07/15/17 11:41 92 18 186/86 97 Room Air 07/15/17 10:26 113 07/15/17 10:15 96 Room Air 07/15/17 10:01 36.5 116 20 147/81 96 Room Air General Appearance: no apparent distress, + pertinent finding (chronic ill appearing) Head: normocephalic, atraumatic Eyes: normal inspection, PERRL, EOMI, sclerae normal ENT: hearing grossly normal, pharynx normal, + pertinent finding (mucous membranes moist) Neck: supple, no JVD, trachea midline Respiratory/Chest: chest non-tender, no respiratory distress, no accessory muscle use, + decreased breath sounds (bilateral bases) Cardiovascular: regular rate, rhythm Abdomen/GI: normal bowel sounds, non tender, + distended Back: no CVA tenderness Extremities/Musculoskelatal: non-tender (pedal pushes and pulls intact bilaterally, fiber design engineer strength equal bilaterally), + pertinent finding (+pretibial edema) Neurologic/Psych: alert, normal mood/affect, oriented x 3 Skin: normal color, warm/dry Diagnostics Laboratory Results Results Past 24 Hours Test 07/15/17 10:54 07/15/17 16:20 07/15/17 17:14 Range/Units White Blood Count 6.32 4.8-10.8 K/uL Red Blood Count 3.20 4.2-5.4 M/uL Hemoglobin 11.6 12.0-16.0 g/dL Hematocrit 35.3 37-47 % Mean Corpuscular Volume 110.3 80-100 fL Mean Corpuscular Hemoglobin 36.3 25-34 pg Mean Corpuscular Hemoglobin Concent 32.9 32-36 g/dl Platelet Count 249 130-400 K/uL Mean Platelet Volume 10.2 7.4-10.4 fL Neutrophils (%) (Auto) 62.0 % Lymphocytes (%) (Auto) 18.4 % Monocytes (%) (Auto) 16.9 % Eosinophils (%) (Auto) 1.9 % Basophils (%) (Auto) 0.8 % Neutrophils # (Auto) 3.92 1.4-6.5 K/uL Lymphocytes # (Auto) 1.16 1.2-3.4 K/uL Monocytes # (Auto) 1.07 0.11-0.59 K/uL Eosinophils # (Auto) 0.12 0-0.5 K/uL Basophils # (Auto) 0.05 0-0.2 K/uL RDW Standard Deviation 100.5 36.4-46.3 fL RDW Coefficient of Variation 25.0 11.5-14.5 % Immature Granulocyte % (Auto) 0.0 % Immature Granulocyte # (Auto) 0.00 0.00-0.02 K/uL Toxic Vacuolation 1+ Anisocytosis PRESENT Macrocytosis PRESENT Prothrombin Time 12.3 9.0-12.0 SECONDS Prothromb Time International Ratio 1.2 0.9-1.1 Activated Partial Thromboplast Time 24.6 21.0-31.0 SECONDS Partial Thromboplastin Ratio 0.9 Sodium Level 144 136-145 mmol/L Potassium Level 3.3 3.5-5.1 mmol/L Chloride Level 111 98-107 mmol/L Carbon Dioxide Level 25 21-32 mmol/L Anion Gap 8.0 3-11 mmol/L Blood Urea Nitrogen 11 7-18 mg/dl Creatinine 1.00 0.60-1.20 mg/dl Est Creatinine Clear Calc Drug Dose 36.1 ml/min Estimated GFR () 62.1 Estimated GFR (Non- 53.5 BUN/Creatinine Ratio 11.4 10-20 Random Glucose 84 70-99 mg/dl Calcium Level 7.9 8.5-10.1 mg/dl Magnesium Level 2.0 1.8-2.4 mg/dl Total Bilirubin 0.6 0.2-1 mg/dl Aspartate Amino Transf (AST/SGOT) 135 15-37 U/L Alanine Aminotransferase (ALT/SGPT) 77 12-78 U/L Alkaline Phosphatase 227 45-117 U/L Troponin I 0.051 0.036 0-0.045 ng/ml Total Protein 5.0 6.4-8.2 gm/dl Albumin 2.2 3.4-5.0 gm/dl Globulin 2.8 2.5-4.0 gm/dl Albumin/Globulin Ratio 0.8 0.9-2 Urine Color DK YELLOW Urine Appearance TURBID CLEAR Urine pH 5.0 4.5-7.5 Urine Specific [place] > 1.045 1.000-1.030 Urine Protein TRACE NEG Urine Glucose (UA) NEG NEG Urine Ketones NEG NEG Urine Occult Blood 3+ NEG Urine Nitrite NEG NEG Urine Bilirubin NEG NEG Urine Urobilinogen NEG NEG Urine Leukocyte Esterase MODERATE NEG Urine WBC (Auto) >30 0-5 /hpf Urine RBC (Auto) 10-30 0-4 /hpf Urine Hyaline Casts (Auto) 10-30 0-5 /lpf Urine Epithelial Cells (Auto) >30 0-5 /lpf Urine Bacteria (Auto) 1+ NEG Urine Crystals CALCIUM OXALATE NONE PRSENT Urine Pathogenic Casts 0 /lpf Urine Mucus PRESENT NONE PRSENT Urine Yeast (Auto) NONE PRSENT Microbiology Results 07/15/17 Urine Culture, Received Pending Diagnostic Radiology CXR: IMPRESSION: 1. Mildly low lung volumes with hypoventilatory changes and suspected bibasilar atelectasis. 2. Trace pleural effusions may be present. CT CHEST: IMPRESSION: 1. No pulmonary emboli identified. 2. No thoracic aortic dissection. 3. Moderate bilateral pleural effusions with associated segmental atelectasis. 4. Generalized anasarca and large ascites within visualized portions of the upper abdomen. Impression Assessment and Plan ASCITES Probable secondary to pancreatic CA and chemo tx. Pt had lasix increased to 20mg daily and spironolactone 50mg added without improvement of edema. -Albumin + Lasix 20mg IV -continue Creon, hx Whipple procedure in past -GI consult for probable paracentesis -monitor prp SOB Pt with increasing SOB with exertion, worsening past month. Probable secondary to bilateral pleural effusions, ascites. 95% on RA. -continue lasix, spironolactone -if continue SOB and pleural effusions continue pulmonology consult MILDLY ELEVATED TROPONIN Initial troponin 0.05. Pt without CP. probable fluid overload. Had echo 07/14/17 : EF: 65-69%, mild abnormal L ventricular diastolic function, mild aortic valve regurgitation, moderate tricuspid regurgitation -trend troponin -repeat EKG UTI U/A: moderate leukocytosis, >30 WBC, 10-30 RBC, >30 epithelial. pending urine culture -Rocephin HYPOKALEMIA K: 3.3 -replace and monitor HX CAD No CP -continue ASA, Lipitor, Coreg HTN BP: 174/79. Pt getting lasix. Continue to monitor -continue coreg Hx PAROXYSMAL A-FIB sinus rhythm. pt not on anticoagulation, denied in past -continue beta donnie DVT PROPHYLAXIS -SCD's DISPOSITION -admit tele -DNR/DNI as per discussion with pt -Follows with Dr Hanna for routine care Pt was seen with Dr Jamil. See addendum Level of Care Telemetry Advanced Directives Existing Living Will: No Existing Power of Bottom Polisher: No Resuscitation Status DO NOT RESUSCITATE VTE Prophylaxis VTE Risk Assessment Done? Y/N: Yes Risk Level: Moderate Given or contraindicated: SCD's Additional Copies To Gregg Hanna D.O.
[2017-07-15 19:17] VITALS: BP 134/76; PULSE 76; TEMP 36.3; O2SAT 94
[2017-07-15] MEDS: ASCORBIC ACID 500 MG TAB PO SCH (20:27)
[2017-07-15] MEDS: ASPIRIN 81 MG ECTAB PO SCH (20:27)
[2017-07-15] MEDS: CEFTRIAXONE SOD INJ 1 GM in DEXTROSE 5% ADD-VANTAGE 50ML 50 ML IV SCH (20:31)
[2017-07-15] MEDS: CARVEDILOL 12.5 MG TAB PO SCH (21:26)
[2017-07-16] VITALS (9 sets, daily range): BP systolic 104–146; BP diastolic 61–78; PULSE 70–92; TEMP 36.2–36.6; O2SAT 90–95; Ht 157.5 cm; Wt 55.5 kg
[2017-07-16] MEDS: ALBUMIN HUMAN 25% 12.5 GM/50 ML VIAL IV SCH ×2 (05:32→12:00)
[2017-07-16 05:39] LABS: HEMATOCRIT 27.8 % (37-47); HEMOGLOBIN 9.2 g/dL (12.0-16.0); MEAN CELL VOLUME 109.9 fL (80-100); MEAN CORPUSCULAR HEMOGLOBIN 36.4 pg (25-34); MEAN CORPUSCULAR HGB CONC 33.1 g/dl (32-36); MEAN PLATELET VOLUME 11.6 fL (7.4-10.4); PLATELET COUNT 207 K/uL (130-400); RED CELL DISTRIBUTION WIDTH CV 24.7 % (11.5-14.5); RED CELL DISTRIBUTION WIDTH SD 98.3 fL (36.4-46.3); WHITE BLOOD COUNT 4.87 K/uL (4.8-10.8)
[2017-07-16 06:11] LABS: ALBUMIN 1.9 gm/dl (3.4-5.0); CALCIUM 7.2 mg/dl (8.5-10.1); CREATININE 0.97 mg/dl (0.60-1.20); POTASSIUM 4.3 mmol/L (3.5-5.1); TOTAL PROTEIN 4.1 gm/dl (6.4-8.2)
[2017-07-16] MEDS: POTASSIUM CHLORIDE 10 MEQ TABCR PO SCH (08:12)
[2017-07-16] MEDS: ASCORBIC ACID 500 MG TAB PO SCH ×2 (08:12→20:40)
[2017-07-16] MEDS: CARVEDILOL 12.5 MG TAB PO SCH ×2 (08:12→20:39)
[2017-07-16] MEDS: LACTOBACILLUS ACIDOPHILUS (FLORANEX) TAB PO SCH (08:12)
[2017-07-16] MEDS: ATORVASTATIN 40 MG TAB PO SCH (08:12)
[2017-07-16] MEDS: MULTIVITAMIN TAB PO SCH (08:12)
[2017-07-16] MEDS ORDERED: SPIRONOLACTONE 25 MG TAB PO SCH (09:00)
[2017-07-16] MEDS ORDERED: FUROSEMIDE 20 MG TAB PO SCH (09:00)
--- NOTE | 2017-07-16 10:08 | Clinical Documentation Query ---
CLINICAL DOCUMENTATION QUERY 77 yo female admitted with increasing SOB, ascites, elevated troponin, hypokalemia, and UTI. Echo 07/14/17 showed EF = 65-69% and mild abnormal left ventricular diastolic function, fmild aortic valve regurgitation, and moderate tricuspid regurgitation. In your clinical opinion is this patient being managed for: ( ) Acute on chronic diastolic CHF ( ) Not Agree ( ) Other explanation of clinical findings (Please Explain) ( ) Unable to determine (Please Define) ( ) Need to Discuss The medical record reflects the following clinical findings, treatment, and risk factors. Clinical Indicators: ECHO = EF 65-69%, mild left vent diastolic function, SOB with exertion, pretibial edema Treatment: IV Lasix, PO Lasix Risk Factors: Age, tachycardia, HTN, CAD Please clarify and document your clinical opinion in the progress notes and discharge summary. Terms such as "probable", "suspected", "likely", "questionable", "possible", or "still to be ruled out" are acceptable. IF IN AGREEMENT, YOU MUST DOCUMENT ABOVE DIAGNOSTIC STATEMENT IN DAILY PROGRESS NOTES AND DISCHARGE SUMMARY. This document is not part of the patient's record. Thank You, Lilliana Stephenson RN [phone]
--- NOTE | 2017-07-16 11:23 | Gastrointestinal Consultation ---
Gastrointestinal Consultation Date of Consultation: Jul 16, 2017 Attending Physician: Tanya Almonte Consulting Physician: Dori Rao Reason for Consultation: Ascites History of Present Illness Patient is a 77 year old female who presented to ED w c/o increased SOB. Her hx is pertinent for pancreas ca s/p Whipple 11/2015. Currently managed by Dr. Maynard and had been started on Gemcitabine chemo in February. CA 19-9 recently elevated at 85.3. She was referred back to GI clinic and seen on 07/07 for elevated LFTs and development of abd ascites, pleural effusion. She was started on Lasix 20mg and Spironolactone 50mg, recommended to be on low salt diet. A diagnostic & therapeutic paracentesis was scheduled for 07/18. As far as for her elevated LFTs, serologies to r/o autoimmune/hereditary liver diseases, hepatitis are all negative. She does have hx of fatty liver. Though LFTs may also be increased by chemo use. Since started on diuretics, pt hasn't noticed much improvement of her abdominal swelling and even felt her SOB is worse. Upon eval in ED, labs showed H/H at baseline, CMP w similarly elevated LFTs which are decreasing. Chest/Thorax CTA showed no PEs, + moderate bilateral pleural effusions, w atelectasis. Past Medical/Surgical History Medical Problems: (1) Asthma, Unspecified Status: Chronic (2) Coronary artery disease Status: Chronic (3) Dyslipidemia Status: Chronic (4) Elevated troponin Status: Acute (5) GERD (gastroesophageal reflux disease) Status: Chronic (6) Hypertension Nos Status: Chronic (7) Pleural effusion Status: Acute (8) Precordial chest pain Status: Acute (9) SOB (shortness of breath) Status: Acute (10) Tachycardia Status: Acute (11) Urin Tract Infection Nos Status: Chronic Past Medical History: Past Medical/Surgical History Medical Problems: (1) Asthma, Unspecified Status: Chronic (2) CAD (coronary artery disease) Status: Chronic (3) Coronary artery disease Status: Chronic (4) Diverticulitis of colon Status: Resolved (5) Dyslipidemia Status: Chronic (6) GERD (gastroesophageal reflux disease) Status: Chronic (7) GERD (gastroesophageal reflux disease) Status: Chronic (8) History of left heart catheterization (LHC) Permanent Comment: status post PCI to the LAD with a BURT in [place], circa July 2008. Status: Chronic (9) HLD (hyperlipidemia) Status: Chronic (10) HTN (hypertension) Status: Chronic (11) Hypertension Nos Status: Chronic (12) Pancreatic cancer Status: Chronic (13) Recurrent UTI Status: Chronic (14) Renal artery stenosis Permanent Comment: s.p stent Status: Chronic (15) TIA (transient ischemic attack) Status: Chronic (16) Urin Tract Infection Nos Status: Chronic Surgical Problems: (1) H/O colonoscopy Status: Chronic (2) H/O esophagogastroduodenoscopy Status: Chronic (3) H/O hernia repair Status: Chronic (4) History of pancreatic surgery Permanent Comment: Hx Whipple procedure - 11/2016. Dr Johnson [facility] [place] Status: Resolved (5) History of repair of hiatal hernia Status: Chronic (6) History of stent insertion of renal artery Status: Resolved (7) History of tonsillectomy and adenoidectomy Status: Resolved (8) History of total abdominal hysterectomy Status: Chronic (9) Hx of appendectomy Status: Chronic (10) Hx of foot surgery Status: Chronic (11) Percutaneous transluminal coronary angioplasty Status: Resolved (12) Renal artery stenosis Status: Resolved Family History Cancer Diabetes mellitus FH: heart disease Hypertension Kidney stones Social History Smoking Status: Former Smoker (Quit 1999. smoked 1ppd x 15 years) Alcohol Use: none Drug Use: none Marital Status: Housing Status: lives with significant other Occupation Status: retired Allergies Coded Allergies: Adhesives (Verified Allergy, Unknown, SURGICAL TAPE, 07/15/17) Ciprofloxacin (Verified Allergy, Unknown, Itching, 07/15/17) Reported by PT Cortisone (Verified Adverse Reaction, Intermediate, FLUSHED, NAUSEA, ) Codeine (Verified Adverse Reaction, Unknown, DIZZINESS, NAUSEA AND VOMITING, 07/15/17) Iodinated Diagnostic Agents (Verified Adverse Reaction, Unknown, N/V, 07/15) Lisinopril (Verified Adverse Reaction, Unknown, Cough, 07/15/17) Reported by PT Morphine and Related (Verified Adverse Reaction, Unknown, Nausea,vomiting and neuro complications., 07/15/17) Reported by PT Nitrofurantoin (Verified Adverse Reaction, Unknown, Nausea,vomiting and headache., 07/15/17) Reported by PT Current Medications Home Meds and Scripts Medications Dose Route/Sig Max Daily Dose Days Date Category Dose Instructions Aldactone (Spironolactone) 50 Mg Tab 50 Mg PO DAILY 30 07/15/17 Reported Probiotic (Probiotic Product) 1 Cap Cap 1 Cap PO DAILY 07/15/17 Reported Potassium Chloride Er (Potassium Chloride) 10 Meq Tab 10 Meq PO DAILY 90 07/15/17 Reported Creon (Pancrelipase (Lipase-Protease-) 1 Cap Cap 1 Cap PO QID 07/15/17 Reported Carvedilol 25 Mg Tab 12.5 Mg PO BID 07/15/17 Reported Lipitor (Atorvastatin Calcium) 40 Mg Tab 40 Mg PO DAILY 30 07/15/17 Reported Lasix (Furosemide) 20 Mg Tab 20 Mg PO DAILY 07/15/17 Reported Vitamin C (Ascorbic Acid) 1,000 Mg Tab 1,000 Mg PO BID 01/23/17 Reported Ultram (Tramadol HCl) 50 Mg Tab 50 Mg PO Q8H PRN 01/23/17 Reported Zofran (Ondansetron HCl) 8 Mg Tab 8 Mg PO PRN PRN 01/23/17 Reported Multi Vitamin (Multiple Vitamin) 1 Tab Tab 1 Tab PO QAM 01/23/17 Reported Benadryl (Diphenhydramine Hcl) 25 Mg Tab 25 Mg PO HS PRN 08/30/15 Reported Nitrostat (Nitroglycerin) 0.4 Mg Sub 0.4 Mg UT UD PRN 08/28/[address] ONE TABLET UNDER THE TONGUE EVERY 5 MINUTES FOR UO TO 3 DOSES IF NEEDED FOR CHEST PAIN. Ecotrin Or Generic (Aspirin) 81 Mg Tab 81 Mg PO QPM 10/03/11 Reported Review of Systems Constitutional: No fever, No chills Respiratory: + shortness of breath, No cough Abdomen: No pain, No nausea, No vomiting Physical Exam Date Time Temp Pulse Resp B/P (MAP) Pulse Ox O2 Delivery O2 Flow Rate FiO2 07/16/17 08:00 Room Air 07/16/17 07:49 36.3 73 16 136/71 (92) 90 Room Air 07/16/17 06:52 36.3 92 20 132/68 (89) 92 Room Air 07/16/17 05:29 36.5 70 20 126/68 (87) 92 Room Air 07/16/17 04:05 Room Air 07/16/17 00:42 36.4 75 20 131/67 (88) 91 Room Air 07/16/17 00:05 Room Air 07/15/17 20:10 Room Air 07/15/17 19:17 36.3 76 18 134/76 (95) 94 Room Air 07/15/17 18:27 36.3 81 16 111/70 (84) 93 Room Air 07/15/17 17:55 36.4 81 18 114/72 (86) 91 Room Air 07/15/17 16:01 36.5 90 18 174/90 (118) 93 Room Air 07/15/17 16:00 36.5 18 174/90 93 Room Air 07/15/17 14:49 93 20 179/86 93 Room Air 07/15/17 13:57 94 18 182/83 94 Room Air 07/15/17 12:52 82 18 174/79 95 Room Air 07/15/17 11:41 92 18 186/86 97 Room Air General Appearance: WD/WN, no apparent distress Eyes: normal inspection, PERRL, EOMI Neck: supple, no JVD, trachea midline Respiratory/Chest: no respiratory distress, no accessory muscle use, + decreased breath sounds Cardiovascular: regular rate, rhythm, no gallop, no murmur Abdomen: normal bowel sounds, non tender, + distended Extremities: + swelling (+2 pitting edema on bilateral legs ) Neurologic/Psych: alert, normal mood/affect, oriented x 3 Skin: normal color, no jaundice, no rash Laboratory Results Last 24 Hours Test 07/15/17 16:20 07/15/17 17:14 07/15/17 23:12 07/16/17 05:17 Urine Color DK YELLOW Urine Appearance TURBID Urine pH 5.0 Urine Specific [place] > 1.045 Urine Protein TRACE Urine Glucose (UA) NEG Urine Ketones NEG Urine Occult Blood 3+ Urine Nitrite NEG Urine Bilirubin NEG Urine Urobilinogen NEG Urine Leukocyte Esterase MODERATE Urine WBC (Auto) >30 /hpf Urine RBC (Auto) 10-30 /hpf Urine Hyaline Casts (Auto) 10-30 /lpf Urine Epithelial Cells (Auto) >30 /lpf Urine Bacteria (Auto) 1+ Urine Crystals CALCIUM OXALATE Urine Pathogenic Casts /lpf Urine Mucus PRESENT Urine Yeast (Auto) Troponin I 0.036 ng/ml 0.037 ng/ml White Blood Count 4.87 K/uL Red Blood Count 2.53 M/uL Hemoglobin 9.2 g/dL Hematocrit 27.8 % Mean Corpuscular Volume 109.9 fL Mean Corpuscular Hemoglobin 36.4 pg Mean Corpuscular Hemoglobin Concent 33.1 g/dl RDW Standard Deviation 98.3 fL RDW Coefficient of Variation 24.7 % Platelet Count 207 K/uL Mean Platelet Volume 11.6 fL Sodium Level 143 mmol/L Potassium Level 4.3 mmol/L Chloride Level 111 mmol/L Carbon Dioxide Level 27 mmol/L Anion Gap 5.0 mmol/L Blood Urea Nitrogen 14 mg/dl Creatinine 0.97 mg/dl Est Creatinine Clear Calc Drug Dose 37.2 ml/min Estimated GFR () 64.4 Estimated GFR (Non- 55.5 BUN/Creatinine Ratio 14.0 Random Glucose 95 mg/dl Calcium Level 7.2 mg/dl Total Bilirubin 0.4 mg/dl Aspartate Amino Transf (AST/SGOT) 95 U/L Alanine Aminotransferase (ALT/SGPT) 57 U/L Alkaline Phosphatase 178 U/L Total Protein 4.1 gm/dl Albumin 1.9 gm/dl Globulin 2.2 gm/dl Albumin/Globulin Ratio 0.9 Impression Patient is a 77 year old female w hx of pancreas ca s/p Whipple; recently developed elevated LFTs, and abdominal ascites and pleural effusions, having increasing SOB despite diuretic use. Plan - U/S guided paracentesis today w fluid analysis: cell ct, cx, gram stain, fluid protein, albumin, cytology - Increase Lasix to 40mg daily, Spironolactone 100mg daily. Monitor renal function and electrolytes. - 2g Na diet. - Regarding elevated LFTs: hx of fatty liver, previous workup for autoimmune, hereditary liver disease, hepatitis all negative. Suspect chemo induced, LFTs been trending down since chemo held. Late entry: atpent was seen and examined with ALMA Al on 07/16. Her note reflects our findings and plan.
--- NOTE | 2017-07-16 13:06 | DIAGNOSTIC IMAGING REPORT ---
ULTRASOUND GUIDED THERAPEUTIC AND DIAGNOSTIC PARACENTESIS CLINICAL HISTORY: Ascites. COMPARISON STUDY: No previous studies for comparison. PROCEDURE: The risks, benefits, and alternatives to the procedure were discussed with the patient including the risk of bleeding, infection and injury to adjacent structures. The patient agreed to the procedure and informed written consent was obtained. Following real-time ultrasound localization, the skin of the left lower quadrant was prepped and draped. Following local anesthesia with Xylocaine, the sheath paracentesis needle was inserted and approximately 1.5 liters of straw-colored fluid was removed by vacuum suction. 1 L of fluid was sent to laboratory for analysis as ordered. The patient tolerated the procedure well and no immediate complications were evident. IMPRESSION: Ultrasound-guided paracentesis with removal of 1.5 liters of ascites. Electronically signed by: Momo Araujo M.D. 07/16/2017 1:05 PM Dictated Date/Time: 07/16/2017 1:05 PM
--- NOTE | 2017-07-16 18:28 | Progress Note ---
Medicine Progress Note Date & Time of Visit: Jul 16, 2017 at 09:03. Subjective Pt was seen and examined Lying in bed with no distress She said that she feels much better now But she said that she does have SOB with minimal exertion Denies any chest pain, palpitation dizziness and SOB Objective Last 8 Hrs Date Time Temp Pulse Resp B/P (MAP) Pulse Ox O2 Delivery O2 Flow Rate FiO2 07/16/17 16:00 Room Air 07/16/17 14:36 36.4 76 18 121/72 (88) 92 07/16/17 13:43 36.6 80 16 104/61 (75) 93 07/16/17 12:19 36.3 90 18 146/71 (96) 95 Room Air 07/16/17 12:00 Room Air Physical Exam: General- No acute distress Head- atraumatic Eyes- PERRL, EOMI ENT- oropharynx clear Neck- supple, no JVD Lungs- Decrease BS Heart- regular rhythm Abdomen- normal bowel sounds, ascites Extremities- +2edema Neuro- alert, oriented, PERRL, EOMI Skin- warm & dry Laboratory Results: Last 24 Hours Test 07/15/17 23:12 07/16/17 00:00 07/16/17 05:17 Troponin I 0.037 ng/ml Peritoneal Fluid Color STRAW Peritoneal Fluid Appearance CLEAR Peritoneal Fluid WBC 113 /uL Peritoneal Fluid RBC < 3000 /uL Peritoneal Fld Mononuclear WBCs (%) 89.1 % Peritoneal Fld Polynuclear WBCs (%) 10.9 % Peritoneal Fluid Total Protein 0.8 g/dl Peritoneal Fluid Albumin < 0.6 g/dl Peritoneal Fluid LDH 84 IU Peritoneal Fluid Glucose 94 mg/dl Peritoneal Fluid Amylase 9 U/L Peritoneal Fluid Lipase 17 U/L Peritoneal Fluid Triglycerides 18 mg/dl White Blood Count 4.87 K/uL Red Blood Count 2.53 M/uL Hemoglobin 9.2 g/dL Hematocrit 27.8 % Mean Corpuscular Volume 109.9 fL Mean Corpuscular Hemoglobin 36.4 pg Mean Corpuscular Hemoglobin Concent 33.1 g/dl RDW Standard Deviation 98.3 fL RDW Coefficient of Variation 24.7 % Platelet Count 207 K/uL Mean Platelet Volume 11.6 fL Sodium Level 143 mmol/L Potassium Level 4.3 mmol/L Chloride Level 111 mmol/L Carbon Dioxide Level 27 mmol/L Anion Gap 5.0 mmol/L Blood Urea Nitrogen 14 mg/dl Creatinine 0.97 mg/dl Est Creatinine Clear Calc Drug Dose 37.2 ml/min Estimated GFR () 64.4 Estimated GFR (Non- 55.5 BUN/Creatinine Ratio 14.0 Random Glucose 95 mg/dl Calcium Level 7.2 mg/dl Total Bilirubin 0.4 mg/dl Aspartate Amino Transf (AST/SGOT) 95 U/L Alanine Aminotransferase (ALT/SGPT) 57 U/L Alkaline Phosphatase 178 U/L Total Protein 4.1 gm/dl Albumin 1.9 gm/dl Globulin 2.2 gm/dl Albumin/Globulin Ratio 0.9 Date/Time Source Procedure Growth Status 07/16/17 00:00 Ascities Fluid Acid Fast Stain Pending Received 07/16/17 00:00 Ascities Fluid Mycobacterial Culture Pending Received 07/16/17 00:00 Ascities Fluid Gram Stain Pending Received 07/16/17 00:00 Ascities Fluid Bacterial Culture Pending Received Assessment & Plan ASCITES Secondary to pancreatic CA and chemo tx. CT showed generalized anasarca and large ascites within visualized portions of the upper abdomen. s/p paracentesis where 1.5 L removed GI on board Lasix increase to 40mg daily and spironolactone increased to 100mg daily Will monitor BMP cultures and gram stain pending for ascites fluid [id number] Pleural effusion CT showed moderate bilateral pleural effusions Diuretic increased s/p paracentesis repeat CXR in am ELEVATED TROPONIN Troponin on admission 0.05 Trop trending down wnl EKG showed no ischemic changes Denies any chest pain Continue statin, asa and coreg ELEVATED LIVER ENZYMES Possible related to recent chemo liver enzymes trending down continue monitor UTI U/A: moderate leukocytosis, >30 WBC, 10-30 RBC, >30 epithelial. Urine cx growth more than 3 organisms possible contamination Will continue Rocephin until ascites fluid cx resolves Hx PANCREATIC CANCER Last chemo was 06/26/17 Continue Creon HYPOKALEMIA K stable Continue monitor HX CAD continue ASA, Lipitor, Coreg HTN BP stable Hx PAROXYSMAL A-FIB Rate control on NSR continue beta donnie Not on anticoagulant DVT PROPHYLAXIS SCD's Consider anticoagulant if stays for another 24hs in the hospital DISPOSITION Will discharge home once medically stable CODE STATUS DNR Current Inpatient Medications: Current Inpatient Medications Medications (Trade) Dose Ordered Sig/Shakira Route Start Time Stop Time Status Last Admin Dose Admin Ioversol (Optiray 320) 125 ml UD PRN IV 07/15/17 10:30 07/19/17 10:29 Acetaminophen (Tylenol Tab) 650 mg Q4H PRN PO 07/15/17 14:15 08/14/17 14:14 Ondansetron HCl (Zofran Inj) 4 mg Q6H PRN IV 07/15/17 14:15 08/14/17 14:14 Nitroglycerin (Nitrostat Tab) 0.4 mg UD PRN SL 07/15/17 14:15 08/14/17 14:14 Polyethylene (Miralax Powder Packet) 17 gm DAILY PRN PO 07/15/17 14:15 08/14/17 14:14 Aspirin (Ecotrin Tab) 81 mg QPM PO 07/15/17 21:00 08/14/17 20:59 07/15/17 20:27 81 MG Atorvastatin Calcium (Lipitor Tab) 40 mg DAILY PO 07/16/17 09:00 08/15/17 08:59 07/16/17 08:12 40 MG Carvedilol (Coreg Tab) 12.5 mg BID PO 07/15/17 21:00 08/14/17 20:59 07/16/17 08:12 12.5 MG Multivitamins (Multivitamin Tab) 1 tab QAM PO 07/16/17 09:00 08/15/17 08:59 07/16/17 08:12 1 TAB Tramadol HCl (Ultram Tab) 50 mg Q8H PRN PO 07/15/17 15:00 08/14/17 14:59 Ascorbic Acid (Vitamin C Tab) 1,000 mg BID PO 07/15/17 21:00 08/14/17 20:59 07/16/17 08:12 1,000 MG Potassium Chloride (Klor-Con M10) 10 meq DAILY PO 07/16/17 09:00 08/15/17 08:59 07/16/17 08:12 10 MEQ Lactobacillus Acidophilus (Floranex Tab) 1 tab DAILY PO 07/16/17 09:00 08/15/17 08:59 07/16/17 08:12 1 TAB Miscellaneous Information (Order Awaiting Action) 1 ea QS N/A 07/15/17 16:00 08/14/17 15:59 Heparin Sodium (Porcine) (Heparin 100 Unit/ml 5ml Flush) 5 ml PRN PRN IV 07/15/17 16:15 08/14/17 16:14 07/16/17 14:19 5 ML Ceftriaxone Sodium 1 gm/ Dextrose 50 ml @ 100 mls/hr Q24H IV 07/15/17 20:00 07/20/17 19:59 07/15/17 20:31 100 MLS/HR Furosemide (Lasix Tab) 40 mg DAILY PO 07/17/17 09:00 08/15/17 08:59 Spironolactone (Aldactone Tab) 100 mg DAILY PO 07/17/17 09:00 08/15/17 08:59
[2017-07-16] MEDS ORDERED: PANCCAP2 PO (18:34)
--- NOTE | 2017-07-16 20:16 | Medical Consult ---
Consultation Date of Consultation: Jul 16, 2017. Attending Physician: Tanya Almonte M.D. History of Present Illness ONCOLOGY HEMATOLOGY CONSULT: Evaluation management of pancreatic cancer with now increasing ascites and bilateral pleural effusion. Date of consult: 07/16/2017 HPI: 77-year-old female, a case of pancreatic carcinoma, S/P of Whipple's procedure, pathological T3, N1 (2/21 lymph nodes positive for metastatic disease,), no evidence of distant metastatic noted. She was seen by Dr. Maynard for medical oncology. She received single agent adjuvant chemotherapy with gemcitabine between 2016-06/26/2017. She could not receive chemotherapy as we planned earlier because of low white blood cell count, thrombocytopenia which requires a delayed treatment as well as dose reduction. Recently for the last one month she is having increasing ascites, pleural effusion and so decided discontinue her chemotherapy treatment, gradual declining performance was noted to ECOG 3. Earlier in 03/2017, noticed to to have change in the liver function test with the gradual rise in the AST and ALT, alkaline phosphatase with normal bilirubin level. She also had a bilateral lower extremity edema. There was no evidence of DVT noted in the Doppler evaluation (06/26/2017) - CT scan of the abdomen and pelvis done on 05/01/2017 showed diffuse hepatic steatosis, postsurgical changes of Whipple's procedure noted, no recurrent disease noted. There was no ascites at that time. - CT scan of chest done on 07/05/2017 --> Volume overload with the 3rd spacing, presence of bilateral pleural effusion, ascites, body wall edema noted. No evidence of pulmonary edema noted. - BUN/creatinine: 9/1.1, calcium 8.3, total protein 4.6, albumin 2.5, AST 135, ALT 81, alkaline phosphatase 234, Total bilirubin: 0.6 (07/10/2017). - CA 19-9 level --> 85.3 (07/03/2017) Now she's admitted at [facility] on 07/15/2017 for increasing shortness of breath, increasing swelling of the abdomen, leg edema, she was plan to have abdominal paracentesis as an outpatient. She also complains of some nonproductive cough of 1 to 2 weeks duration, no fever, gained significant weight because of increasing ascites over the last one to 2 months. She denies any bleeding from any sites. Recently she was started on diuretic therapy with Lasix and Aldectone. Also seen by GI, today she underwent abdominal paracentesis with removal of about 2.5 L noted. She does come of some nonspecific abdominal pain after eating, feels nauseous, no vomiting, - CT scan of the chest done on 07/15/2017 showed no evidence of pulmonary embolism, moderate bilateral pleural effusion with some segmental atelectasis, generalized anasarca with large ascites noted in the upper abdomen. Blood workup done on 07/15/2017: - WBC 6300, H&H of 11.6/35.3, Platelet count of 249,000. - BUN/creatinine: 11/1.1, AST 135, ALT 77, Total bilirubin: 0.6, alkaline phosphatase 227 - Albumin 2.2, total protein 5.0. - PT 12.3, PTT 24.6 I saw her at bedside, few other family members were also at bedside, she says that she is feeling somewhat better after removal of the 2.5 L of the ascitic fluid today, still complains of upper abdominal pain after eating something, has fair appetite, she is afraid to you tomorrow, has some diarrhea after eating something, no bleeding from any sites. No increasing back pain or bone pain. Chronic bilateral leg edema present which is getting better over the last 24 hour. REVIEW OF SYSTEMS: GENERAL: significant weight gain noted because of increasing ascites and leg edema, otherwise generalized wasting noted with bitemporal wasting,, generalized weakness and fatigue present, no fever, sweats or chills. SKIN: No skin rash, no bruising. HEAD: No headache, no dizziness. EYES: No recent change in the vision, no diplopia, EARS: No earache ,no tinnitus, NOSE: No epistaxis, No nasal discharge or stuffiness, MOUTH: No sores, no dysphagia, no hoarseness of voice, NECK: No lumps, No swelling in thyroid area. No stiffness. PULMONARY: cough with scanty white expectant present, shortness of breath on minimal exertion present,, no hemoptysis, no chest pain, No wheezing. CARDIOVASCULAR: No anginal chest pain, no PND, no orthopnea. No palpitation, bilateral leg edema. No syncope. GASTROINTESTINAL: upper abdominal pain after eating something, mild nausea present, no vomiting has diarrhea after eating something, No constipation. No blood in stool or black tarry stools. No abdominal distention. UROLOGIC: No burning urination. No hematuria. MUSCULOSKELETAL: No joint pain, No joint swelling, no muscle weakness. HEMATOLOGIC: no bleeding disorder, No bruising. NEUROLOGIC: No seizures, no focal weakness, no speech difficulty, No memory disturbances. No tingling or numbness of the extremities. PSYCHIATRIC: No depression. No anxiety. No psychosis. PAST MEDICAL/SURGICAL HISTORY: - Hypertension, GERD, coronary disease, S/P stent placement - Atrial fibrillation. SOCIAL HISTORY: non-smoker, denies any presybeterian abuse. FAMILY HISTORY: nonspecific. MEDICATIONS: please review her chart for detail list of medications. On exam: - Alert and oriented x3, thin built woman, not in any distress. - HEENT: no icterus, mild pallor, Throat: Normal. - Neck: No palpable cervical lymphadenopathy. - Chest: clear to auscultation. - Abdomen: soft, nontender, s/o free fluid , no hepatomegaly, no splenomegaly. - No focal neuro deficit. - Extremities: no finger clubbing, bilateral leg edema. LABS: Blood workup done on 07/16/2017: - WBC 4800, H&H of 9.2/27.8, Platelet count of 207,000. - BUN/creatinine: 14/0.9, AST 95, ALT 57, alkaline phosphatase 178, albumin level I.9. ASSESSMENT AND PLAN: 77-year-old female, a case of pancreatic carcinoma, S/P Whipple's procedure, it was T3 primary tumor, 08/06 lymph node positive for metastatic disease, she then received single agent adjuvant chemotherapy with gemcitabine between 02/2017- early June 2017, last cycle of chemotherapy received on 06/26/2017, her chemotherapy treatment was delayed as well as dose reduction required because of low white blood cell count, low platelet count. Now since April 2017 noticed to have progressive change in the liver function test, mainly elevated AST, ALT, alkaline phosphatase and normal bilirubin level, imaging study showed no focal liver lesions, no evidence of recurrence of pancreatic cancer noted in the imaging studies done in in April 2017, new ascites noted, bilateral pleural effusion noted, bilateral leg edema noted, significant declining performance was noted with the ECOG PS 3 , recent blood workup shows slight increase in the CA 19-9 level noted but it is quite nonspecific. Poor nutritional status noted over the last the few weeks, she does complain of upper abdominal discomfort when she something, feels nauseous, also has some mild diarrhea especially when she something. Today she had abdominal paracentesis, removal of about 2.5 L of the fluid, slight improvement of the abdominal discomfort and leg edema noted in the last 24 hour, hemodynamically she has remained stable, does not requiring oxygen therapy, no fever. Also seen by GI, she is on diuretic therapy for ascites. Acetic fluid cytology pending. It would be very unusual to have significant disease progression of underlying pancreatic cancer at this time. We should consider for nutrition consultation in her case. May consider for upper GI endoscopic evaluation for ongoing upper abdominal pain especially while eating something. No further recommendations from oncology. Thanks for the consultation. Ovi Maher MD Hem/Onc Past Medical/Surgical History Medical Problems: (1) Asthma, Unspecified Status: Chronic (2) Coronary artery disease Status: Chronic (3) Dyslipidemia Status: Chronic (4) Elevated troponin Status: Acute (5) GERD (gastroesophageal reflux disease) Status: Chronic (6) Hypertension Nos Status: Chronic (7) Pleural effusion Status: Acute (8) Precordial chest pain Status: Acute (9) SOB (shortness of breath) Status: Acute (10) Tachycardia Status: Acute (11) Urin Tract Infection Nos Status: Chronic Family History Cancer Diabetes mellitus FH: heart disease Hypertension Kidney stones Social History Smoking Status: Former Smoker (Quit 1999. smoked 1ppd x 15 years) Smokeless Tobacco Use: No Alcohol Use: none Drug Use: none Marital Status: Housing Status: lives with significant other Occupation Status: retired Allergies Coded Allergies: Adhesives (Verified Allergy, Unknown, SURGICAL TAPE, 07/15/17) Ciprofloxacin (Verified Allergy, Unknown, Itching, 07/15/17) Reported by PT Cortisone (Verified Adverse Reaction, Intermediate, FLUSHED, NAUSEA, ) Codeine (Verified Adverse Reaction, Unknown, DIZZINESS, NAUSEA AND VOMITING, 07/15/17) Iodinated Diagnostic Agents (Verified Adverse Reaction, Unknown, N/V, 07/15) Lisinopril (Verified Adverse Reaction, Unknown, Cough, 07/15/17) Reported by PT Morphine and Related (Verified Adverse Reaction, Unknown, Nausea,vomiting and neuro complications., 07/15/17) Reported by PT Nitrofurantoin (Verified Adverse Reaction, Unknown, Nausea,vomiting and headache., 07/15/17) Reported by PT Current Inpatient Medications Current Inpatient Medications Medications (Trade) Dose Ordered Sig/Shakira Route Start Time Stop Time Status Last Admin Dose Admin Ioversol (Optiray 320) 125 ml UD PRN IV 07/15/17 10:30 07/19/17 10:29 Acetaminophen (Tylenol Tab) 650 mg Q4H PRN PO 07/15/17 14:15 08/14/17 14:14 Ondansetron HCl (Zofran Inj) 4 mg Q6H PRN IV 07/15/17 14:15 08/14/17 14:14 Nitroglycerin (Nitrostat Tab) 0.4 mg UD PRN SL 07/15/17 14:15 08/14/17 14:14 Polyethylene (Miralax Powder Packet) 17 gm DAILY PRN PO 07/15/17 14:15 08/14/17 14:14 Aspirin (Ecotrin Tab) 81 mg QPM PO 07/15/17 21:00 08/14/17 20:59 07/15/17 20:27 81 MG Atorvastatin Calcium (Lipitor Tab) 40 mg DAILY PO 07/16/17 09:00 08/15/17 08:59 07/16/17 08:12 40 MG Carvedilol (Coreg Tab) 12.5 mg BID PO 07/15/17 21:00 08/14/17 20:59 07/16/17 08:12 12.5 MG Multivitamins (Multivitamin Tab) 1 tab QAM PO 07/16/17 09:00 08/15/17 08:59 07/16/17 08:12 1 TAB Tramadol HCl (Ultram Tab) 50 mg Q8H PRN PO 07/15/17 15:00 08/14/17 14:59 Ascorbic Acid (Vitamin C Tab) 1,000 mg BID PO 07/15/17 21:00 08/14/17 20:59 07/16/17 08:12 1,000 MG Potassium Chloride (Klor-Con M10) 10 meq DAILY PO 07/16/17 09:00 08/15/17 08:59 07/16/17 08:12 10 MEQ Lactobacillus Acidophilus (Floranex Tab) 1 tab DAILY PO 07/16/17 09:00 08/15/17 08:59 07/16/17 08:12 1 TAB Heparin Sodium (Porcine) (Heparin 100 Unit/ml 5ml Flush) 5 ml PRN PRN IV 07/15/17 16:15 08/14/17 16:14 07/16/17 14:19 5 ML Ceftriaxone Sodium 1 gm/ Dextrose 50 ml @ 100 mls/hr Q24H IV 07/15/17 20:00 07/20/17 19:59 07/15/17 20:31 100 MLS/HR Furosemide (Lasix Tab) 40 mg DAILY PO 07/17/17 09:00 08/15/17 08:59 Spironolactone (Aldactone Tab) 100 mg DAILY PO 07/17/17 09:00 08/15/17 08:59 Amylase/Lipase/ Protease (Pancreaze (Lipase 10,500U) Cap) 1 cap QID PO 07/16/17 21:00 08/15/17 20:59 Physical Exam Date Time Temp Pulse Resp B/P (MAP) Pulse Ox O2 Delivery O2 Flow Rate FiO2 07/16/17 19:29 36.4 73 17 139/78 (98) 92 Room Air 07/16/17 16:00 Room Air 07/16/17 14:36 36.4 76 18 121/72 (88) 92 07/16/17 13:43 36.6 80 16 104/61 (75) 93 07/16/17 12:19 36.3 90 18 146/71 (96) 95 Room Air 07/16/17 12:00 Room Air 07/16/17 08:00 Room Air 07/16/17 07:49 36.3 73 16 136/71 (92) 90 Room Air 07/16/17 06:52 36.3 92 20 132/68 (89) 92 Room Air 07/16/17 05:29 36.5 70 20 126/68 (87) 92 Room Air 07/16/17 04:05 Room Air 07/16/17 00:42 36.4 75 20 131/67 (88) 91 Room Air 07/16/17 00:05 Room Air Laboratory Results Last 24 Hours Test 07/15/17 23:12 07/16/17 00:00 07/16/17 05:17 Troponin I 0.037 ng/ml Peritoneal Fluid Color STRAW Peritoneal Fluid Appearance CLEAR Peritoneal Fluid WBC 113 /uL Peritoneal Fluid RBC < 3000 /uL Peritoneal Fld Mononuclear WBCs (%) 89.1 % Peritoneal Fld Polynuclear WBCs (%) 10.9 % Peritoneal Fluid Total Protein 0.8 g/dl Peritoneal Fluid Albumin < 0.6 g/dl Peritoneal Fluid LDH 84 IU Peritoneal Fluid Glucose 94 mg/dl Peritoneal Fluid Amylase 9 U/L Peritoneal Fluid Lipase 17 U/L Peritoneal Fluid Triglycerides 18 mg/dl White Blood Count 4.87 K/uL Red Blood Count 2.53 M/uL Hemoglobin 9.2 g/dL Hematocrit 27.8 % Mean Corpuscular Volume 109.9 fL Mean Corpuscular Hemoglobin 36.4 pg Mean Corpuscular Hemoglobin Concent 33.1 g/dl RDW Standard Deviation 98.3 fL RDW Coefficient of Variation 24.7 % Platelet Count 207 K/uL Mean Platelet Volume 11.6 fL Sodium Level 143 mmol/L Potassium Level 4.3 mmol/L Chloride Level 111 mmol/L Carbon Dioxide Level 27 mmol/L Anion Gap 5.0 mmol/L Blood Urea Nitrogen 14 mg/dl Creatinine 0.97 mg/dl Est Creatinine Clear Calc Drug Dose 37.2 ml/min Estimated GFR () 64.4 Estimated GFR (Non- 55.5 BUN/Creatinine Ratio 14.0 Random Glucose 95 mg/dl Calcium Level 7.2 mg/dl Total Bilirubin 0.4 mg/dl Aspartate Amino Transf (AST/SGOT) 95 U/L Alanine Aminotransferase (ALT/SGPT) 57 U/L Alkaline Phosphatase 178 U/L Total Protein 4.1 gm/dl Albumin 1.9 gm/dl Globulin 2.2 gm/dl Albumin/Globulin Ratio 0.9
[2017-07-16] MEDS: CEFTRIAXONE SOD INJ 1 GM in DEXTROSE 5% ADD-VANTAGE 50ML 50 ML IV SCH (20:33)
[2017-07-16] MEDS: ASPIRIN 81 MG ECTAB PO SCH (20:39)
[2017-07-16] MEDS: PANCREAZE (LIPASE 10,500U) CAP PO SCH (20:42)
[2017-07-17 04:13] VITALS: BP 152/73; PULSE 75; TEMP 36.9; O2SAT 91
[2017-07-17 06:03] LABS: ALBUMIN 1.9 gm/dl (3.4-5.0); CREATININE 1.08 mg/dl (0.60-1.20); POTASSIUM 4.1 mmol/L (3.5-5.1)
[2017-07-17 06:09] LABS: TOTAL PROTEIN 3.9 gm/dl (6.4-8.2)
[2017-07-17 07:28] VITALS: BP 155/77; PULSE 72; TEMP 36.5; O2SAT 93
--- NOTE | 2017-07-17 07:36 | DIAGNOSTIC IMAGING REPORT ---
SINGLE VIEW CHEST CLINICAL HISTORY: Pleural effusion. FINDINGS: An AP, portable, upright chest radiograph is compared to chest x-ray and chest CT dated 07/15/2017. The examination is degraded by portable technique and patient rotation. A right internal jugular central venous infusion port is unchanged in position. The heart is mildly enlarged. The pulmonary vasculature is noncongested. There are layering pleural effusions with bibasilar atelectasis. Emphysema is suspected. No pneumothorax is seen. The skeletal structures are osteopenic. The bony thorax is grossly intact. IMPRESSION: 1. Mild cardiac enlargement without radiographic evidence of congestive failure. 2. Layering pleural effusions with bibasilar atelectasis. These are similar to previous. Electronically signed by: Luiz Garcia M.D. 07/17/2017 7:35 AM Dictated Date/Time: 07/17/2017 7:33 AM
[2017-07-17] MEDS: POTASSIUM CHLORIDE 10 MEQ TABCR PO SCH (08:09)
[2017-07-17] MEDS: FUROSEMIDE 20 MG TAB PO SCH (08:10)
[2017-07-17] MEDS: SPIRONOLACTONE 100 MG TAB PO SCH (08:10)
[2017-07-17] MEDS: CARVEDILOL 12.5 MG TAB PO SCH ×2 (08:10→20:56)
[2017-07-17] MEDS: ATORVASTATIN 40 MG TAB PO SCH (08:11)
[2017-07-17] MEDS: ASCORBIC ACID 500 MG TAB PO SCH ×2 (08:11→20:54)
[2017-07-17] MEDS: MULTIVITAMIN TAB PO SCH (08:12)
[2017-07-17] MEDS: PANCREAZE (LIPASE 10,500U) CAP PO SCH ×4 (08:12→20:55)
[2017-07-17] MEDS: LACTOBACILLUS ACIDOPHILUS (FLORANEX) TAB PO SCH (08:12)
[2017-07-17 09:24] LABS: HEMATOCRIT 29.8 % (37-47); HEMOGLOBIN 9.7 g/dL (12.0-16.0); MEAN CELL VOLUME 109.6 fL (80-100); MEAN CORPUSCULAR HEMOGLOBIN 35.7 pg (25-34); MEAN CORPUSCULAR HGB CONC 32.6 g/dl (32-36); MEAN PLATELET VOLUME 11.1 fL (7.4-10.4); PLATELET COUNT 197 K/uL (130-400); RED CELL DISTRIBUTION WIDTH CV 24.6 % (11.5-14.5); RED CELL DISTRIBUTION WIDTH SD 97.1 fL (36.4-46.3); WHITE BLOOD COUNT 5.48 K/uL (4.8-10.8)
[2017-07-17] MEDS ORDERED: DICYCLOMINE HCL 20 MG TAB PO PRN (10:30)
--- NOTE | 2017-07-17 10:30 | Gastroenterology Progress Note ---
Progress Note Date of Service: Jul 17, 2017 Subjective Pt evaluation today including: conversation w/ patient, conversation w/ family , physical exam, chart review, lab review, review of studies, review of inpatient medication list Pt has 1.5L ascites removal yesterday. No signs of SBP. SAAG >1.1. LFTs decreasing still. She is c/o diarrhea as soon as she eats. Also having lower abd cramping 5 mins after eating. Hx of Cdiff. Denies any blood in stools. Not much improvement in SOB per her report. CXR this AM showed persistent pleural effusion similar to before. Review of Systems Constitutional: No fever, No chills Respiratory: + shortness of breath, No cough Cardiac: No chest pain Abdomen: + pain, + diarrhea, No nausea, No vomiting, No GI bleeding Endo: + fatigue Skin: No rash, No itch Medications Current Inpatient Medications Medications (Trade) Dose Ordered Sig/Shakira Route Start Time Stop Time Status Last Admin Dose Admin Ioversol (Optiray 320) 125 ml UD PRN IV 07/15/17 10:30 07/19/17 10:29 Acetaminophen (Tylenol Tab) 650 mg Q4H PRN PO 07/15/17 14:15 08/14/17 14:14 Ondansetron HCl (Zofran Inj) 4 mg Q6H PRN IV 07/15/17 14:15 08/14/17 14:14 Nitroglycerin (Nitrostat Tab) 0.4 mg UD PRN SL 07/15/17 14:15 08/14/17 14:14 Polyethylene (Miralax Powder Packet) 17 gm DAILY PRN PO 07/15/17 14:15 08/14/17 14:14 Aspirin (Ecotrin Tab) 81 mg QPM PO 07/15/17 21:00 08/14/17 20:59 07/16/17 20:39 81 MG Atorvastatin Calcium (Lipitor Tab) 40 mg DAILY PO 07/16/17 09:00 08/15/17 08:59 07/17/17 08:11 40 MG Carvedilol (Coreg Tab) 12.5 mg BID PO 07/15/17 21:00 08/14/17 20:59 07/17/17 08:10 12.5 MG Multivitamins (Multivitamin Tab) 1 tab QAM PO 07/16/17 09:00 08/15/17 08:59 07/17/17 08:12 1 TAB Tramadol HCl (Ultram Tab) 50 mg Q8H PRN PO 07/15/17 15:00 08/14/17 14:59 Ascorbic Acid (Vitamin C Tab) 1,000 mg BID PO 07/15/17 21:00 08/14/17 20:59 07/17/17 08:11 1,000 MG Potassium Chloride (Klor-Con M10) 10 meq DAILY PO 07/16/17 09:00 08/15/17 08:59 07/17/17 08:09 10 MEQ Lactobacillus Acidophilus (Floranex Tab) 1 tab DAILY PO 07/16/17 09:00 08/15/17 08:59 07/17/17 08:12 1 TAB Heparin Sodium (Porcine) (Heparin 100 Unit/ml 5ml Flush) 5 ml PRN PRN IV 07/15/17 16:15 08/14/17 16:14 07/17/17 05:18 5 ML Ceftriaxone Sodium 1 gm/ Dextrose 50 ml @ 100 mls/hr Q24H IV 07/15/17 20:00 07/20/17 19:59 07/16/17 20:33 100 MLS/HR Furosemide (Lasix Tab) 40 mg DAILY PO 07/17/17 09:00 08/15/17 08:59 07/17/17 08:10 40 MG Spironolactone (Aldactone Tab) 100 mg DAILY PO 07/17/17 09:00 08/15/17 08:59 07/17/17 08:10 100 MG Amylase/Lipase/ Protease (Pancreaze (Lipase 10,500U) Cap) 1 cap QID PO 07/16/17 21:00 08/15/17 20:59 07/17/17 08:12 1 CAP Objective Vital Signs Date Time Temp Pulse Resp B/P (MAP) Pulse Ox O2 Delivery O2 Flow Rate FiO2 07/17/17 08:00 Room Air 07/17/17 07:28 36.5 72 16 155/77 (103) 93 07/17/17 04:13 36.9 75 18 152/73 (99) 91 Room Air 07/17/17 04:00 Room Air 07/17/17 00:00 Room Air 07/16/17 23:33 36.2 82 18 138/69 (92) 90 Room Air 07/16/17 20:00 Room Air 07/16/17 19:29 36.4 73 17 139/78 (98) 92 Room Air 07/16/17 16:00 Room Air 07/16/17 14:36 36.4 76 18 121/72 (88) 92 07/16/17 13:43 36.6 80 16 104/61 (75) 93 07/16/17 12:19 36.3 90 18 146/71 (96) 95 Room Air 07/16/17 12:00 Room Air Physical Exam General Appearance: WD/WN, + mild distress (c/o diarrhea, abd cramping ), + cachetic Eyes: normal inspection, PERRL Neck: supple, no JVD, trachea midline Respiratory/Chest: normal breath sounds, no respiratory distress, no accessory muscle use Cardiovascular: regular rate, rhythm, no gallop, no murmur Abdomen: normal bowel sounds, non tender, soft Extremities: normal inspection, no pedal edema, no calf tenderness Neurologic/Psych: alert, normal mood/affect, oriented x 3 Skin: normal color, no jaundice, no rash Laboratory Results Last 24 Hours Test 07/17/17 05:20 07/17/17 09:12 Sodium Level 144 mmol/L Potassium Level 4.1 mmol/L Chloride Level 112 mmol/L Carbon Dioxide Level 27 mmol/L Anion Gap 5.0 mmol/L Blood Urea Nitrogen 15 mg/dl Creatinine 1.08 mg/dl Est Creatinine Clear Calc Drug Dose 33.4 ml/min Estimated GFR () 56.5 Estimated GFR (Non- 48.8 BUN/Creatinine Ratio 14.1 Random Glucose 78 mg/dl Calcium Level 7.0 mg/dl Total Bilirubin 0.3 mg/dl Aspartate Amino Transf (AST/SGOT) 81 U/L Alanine Aminotransferase (ALT/SGPT) 46 U/L Alkaline Phosphatase 150 U/L Total Protein 3.9 gm/dl Albumin 1.9 gm/dl Globulin 2.0 gm/dl Albumin/Globulin Ratio 1.0 White Blood Count 5.48 K/uL Red Blood Count 2.72 M/uL Hemoglobin 9.7 g/dL Hematocrit 29.8 % Mean Corpuscular Volume 109.6 fL Mean Corpuscular Hemoglobin 35.7 pg Mean Corpuscular Hemoglobin Concent 32.6 g/dl RDW Standard Deviation 97.1 fL RDW Coefficient of Variation 24.6 % Platelet Count 197 K/uL Mean Platelet Volume 11.1 fL Assessment and Plan Patient is a 77 year old female w hx of pancreas ca s/p Whipple; recently developed elevated LFTs, and abdominal ascites and pleural effusions, having increasing SOB despite diuretic use. Plans - U/S guided paracentesis today w fluid analysis: cell ct, cx, gram stain, fluid protein, albumin, cytology -> done on 07/16 w 1.5L fluid removal; fluid w/ o signs of SBP, cytology, culture pending. - Lasix to 40mg daily, Spironolactone 100mg daily. Monitor renal function and electrolytes. - 2g Na diet. - Regarding elevated LFTs: Suspect chemo induced, LFTs been trending down since chemo held. Though calculated SAAG from paracentesis yesterday was >1.1 and there's a concern for possible ascites secondary to cirrhosis (previous CT abd w signs of hepatic steatosis, cirrhosis workup for autoimmune, hereditary liver diseases, hepatitis negative. Possible NAFLD cirrhosis?). - Currently having diarrhea, lower abd cramping post prandially. Hx of recurrent Cdiff. Will Check stool cx, O&P, Cdiff. Trial of Dicyclomine 10mg TID prn abd cramping/pain, will use sparingly in case it's infectious diarrhea.
--- NOTE | 2017-07-17 15:13 | Progress Note ---
Medicine Progress Note Date & Time of Visit: Jul 17, 2017 at 15:01. Subjective Pt was seen and examined Lying in bed with no distress with family member at bedside Pt said that she is still having SOB with exertion Pt said that she has been having watery diarrhea She said that she had about 4 BM so far today Denies any fever, palpitation, dizziness and chest pain Objective Last 8 Hrs Date Time Temp Pulse Resp B/P (MAP) Pulse Ox O2 Delivery O2 Flow Rate FiO2 07/17/17 12:00 Room Air 07/17/17 08:00 Room Air 07/17/17 07:28 36.5 72 16 155/77 (103 93 Physical Exam: General- No acute distress Head- atraumatic Eyes- PERRL, EOMI ENT- oropharynx clear Neck- supple, no JVD Lungs- Decrease BS at base Heart- regular rhythm Abdomen- normal bowel sounds, ascites Extremities- +2edema Neuro- alert, oriented, PERRL, EOMI Skin- warm & dry Laboratory Results: Last 24 Hours Test 07/17/17 05:20 07/17/17 09:12 Sodium Level 144 mmol/L Potassium Level 4.1 mmol/L Chloride Level 112 mmol/L Carbon Dioxide Level 27 mmol/L Anion Gap 5.0 mmol/L Blood Urea Nitrogen 15 mg/dl Creatinine 1.08 mg/dl Est Creatinine Clear Calc Drug Dose 33.4 ml/min Estimated GFR () 56.5 Estimated GFR (Non- 48.8 BUN/Creatinine Ratio 14.1 Random Glucose 78 mg/dl Calcium Level 7.0 mg/dl Total Bilirubin 0.3 mg/dl Aspartate Amino Transf (AST/SGOT) 81 U/L Alanine Aminotransferase (ALT/SGPT) 46 U/L Alkaline Phosphatase 150 U/L Total Protein 3.9 gm/dl Albumin 1.9 gm/dl Globulin 2.0 gm/dl Albumin/Globulin Ratio 1.0 White Blood Count 5.48 K/uL Red Blood Count 2.72 M/uL Hemoglobin 9.7 g/dL Hematocrit 29.8 % Mean Corpuscular Volume 109.6 fL Mean Corpuscular Hemoglobin 35.7 pg Mean Corpuscular Hemoglobin Concent 32.6 g/dl RDW Standard Deviation 97.1 fL RDW Coefficient of Variation 24.6 % Platelet Count 197 K/uL Mean Platelet Volume 11.1 fL Assessment & Plan ASCITES Secondary to pancreatic CA and chemo tx. CT showed generalized anasarca and large ascites within visualized portions of the upper abdomen. s/p paracentesis where 1.5 L removed Ascites culture no growth GI on board Continue lasix 40mg daily and spironolactone 100mg daily Continue monitor BMP cultures and gram stain pending for ascites fluid [id number] Pleural effusion CT showed moderate bilateral pleural effusions Continue diuretic therapy s/p paracentesis yesterday Repeat CXR today showed layering pleural effusions with bibasilar atelectasis pulmonary consulted DIARRHEA Will check stool for Cdiff Monitor electrolytes ELEVATED TROPONIN Troponin on admission 0.05 Trop trending down wnl EKG showed no ischemic changes Denies any chest pain Continue statin, asa and coreg ELEVATED LIVER ENZYMES Possible related to recent chemo liver enzymes trending down continue monitor UTI U/A: moderate leukocytosis, >30 WBC, 10-30 RBC, >30 epithelial. Urine cx growth more than 3 organisms possible contamination On Rocephin until ascites fluid cx resolves Hx PANCREATIC CANCER Last chemo was 06/26/17 Continue Creon HYPOKALEMIA K stable Continue monitor HX CAD continue ASA, Lipitor, Coreg HTN BP stable Hx PAROXYSMAL A-FIB Rate control on NSR continue beta donnie Not on anticoagulant DVT PROPHYLAXIS SCD's Consider anticoagulant if stays for another 24hs in the hospital DISPOSITION Will discharge home once medically stable CODE STATUS DNR Current Inpatient Medications: Current Inpatient Medications Medications (Trade) Dose Ordered Sig/Shakira Route Start Time Stop Time Status Last Admin Dose Admin Ioversol (Optiray 320) 125 ml UD PRN IV 07/15/17 10:30 07/19/17 10:29 Acetaminophen (Tylenol Tab) 650 mg Q4H PRN PO 07/15/17 14:15 08/14/17 14:14 Ondansetron HCl (Zofran Inj) 4 mg Q6H PRN IV 07/15/17 14:15 08/14/17 14:14 Nitroglycerin (Nitrostat Tab) 0.4 mg UD PRN SL 07/15/17 14:15 08/14/17 14:14 Polyethylene (Miralax Powder Packet) 17 gm DAILY PRN PO 07/15/17 14:15 08/14/17 14:14 Aspirin (Ecotrin Tab) 81 mg QPM PO 07/15/17 21:00 08/14/17 20:59 07/16/17 20:39 81 MG Atorvastatin Calcium (Lipitor Tab) 40 mg DAILY PO 07/16/17 09:00 08/15/17 08:59 07/17/17 08:11 40 MG Carvedilol (Coreg Tab) 12.5 mg BID PO 07/15/17 21:00 08/14/17 20:59 07/17/17 08:10 12.5 MG Multivitamins (Multivitamin Tab) 1 tab QAM PO 07/16/17 09:00 08/15/17 08:59 07/17/17 08:12 1 TAB Tramadol HCl (Ultram Tab) 50 mg Q8H PRN PO 07/15/17 15:00 08/14/17 14:59 Ascorbic Acid (Vitamin C Tab) 1,000 mg BID PO 07/15/17 21:00 08/14/17 20:59 07/17/17 08:11 1,000 MG Potassium Chloride (Klor-Con M10) 10 meq DAILY PO 07/16/17 09:00 08/15/17 08:59 07/17/17 08:09 10 MEQ Lactobacillus Acidophilus (Floranex Tab) 1 tab DAILY PO 07/16/17 09:00 08/15/17 08:59 07/17/17 08:12 1 TAB Heparin Sodium (Porcine) (Heparin 100 Unit/ml 5ml Flush) 5 ml PRN PRN IV 07/15/17 16:15 08/14/17 16:14 07/17/17 05:18 5 ML Ceftriaxone Sodium 1 gm/ Dextrose 50 ml @ 100 mls/hr Q24H IV 07/15/17 20:00 07/20/17 19:59 07/16/17 20:33 100 MLS/HR Furosemide (Lasix Tab) 40 mg DAILY PO 07/17/17 09:00 08/15/17 08:59 07/17/17 08:10 40 MG Spironolactone (Aldactone Tab) 100 mg DAILY PO 07/17/17 09:00 08/15/17 08:59 07/17/17 08:10 100 MG Amylase/Lipase/ Protease (Pancreaze (Lipase 10,500U) Cap) 1 cap QID PO 07/16/17 21:00 08/15/17 20:59 07/17/17 12:19 1 CAP Dicyclomine HCl (Bentyl Tab) 10 mg TID PRN PO 07/17/17 10:30 08/16/17 10:29 Famotidine (Pepcid Tab) 20 mg BID PO 07/17/17 21:00 08/16/17 20:59
[2017-07-17 15:34] VITALS: BP 151/79; PULSE 68; TEMP 36.6; O2SAT 94
--- NOTE | 2017-07-17 17:08 | PULMONARY CONSULTATION ---
DATE OF CONSULTATION: 07/17/2017 TIME: 4:40 p.m. HISTORY OF PRESENT ILLNESS: The patient was seen in room #282. She is a 77-year-old female with a chief complaint of shortness of breath. This began approximately 1 month ago. It has been gradually progressive. She is comfortable at rest, but she is short of breath with any significant exertion. She has just a slight cough. There has been what she thinks is mucus, but she actually just swallows and never expectorates. She denies having any significant chest pain. She has gained about 25 pounds over the past 1-2 weeks. She has had significant peripheral edema. She also has had fluid in her abdomen. Yesterday, she underwent a paracentesis with removal of 1.5 liters of fluid. Despite removal of the fluid, she does not feel better. She states her peripheral edema is also a lot better, but she does not feel better. Pertinent history is that she has pancreatic carcinoma diagnosed in the spring. This was ultimately treated with a Whipple procedure at [facility]. She started chemotherapy and she remains on chemo. The most recent was about 3 weeks ago. The patient is not aware of any recurrence. She denies prior lung problems. She specifically denies asthma, emphysema, chronic bronchitis, tuberculosis, pneumonia, pleurisy or other problems. PAST SURGICAL HISTORY: 1. Hiatal hernia repair. 2. Hysterectomy. 3. Appendectomy. 4. Podiatry surgery. 5. Whipple resection as noted. PAST MEDICAL HISTORY: 1. Pancreatic CA. 2. Diverticulitis. 3. Coronary artery disease. 4. Hyperlipidemia. 5. Reflux. 6. Recurrent urinary tract infections. 7. Renal artery stenosis treated with a stent. 8. TIA. 9. Childbirth x5. SOCIAL HISTORY: Tobacco: The patient quit smoking 15 years ago. She insists she only smoked for about 5 years and not on a daily basis but social. ALLERGIES: 1. CIPRO. 2. CORTISONE -- PATIENT DID NOT REMEMBER THE REACTION, BUT IT WAS REPORTED FLUSHING OR NAUSEA. 3. IODINE. 4. LISINOPRIL. 5. MORPHINE. 6. NITROFURANTOIN. FAMILY HISTORY: Reportedly positive for hypertension, heart disease, diabetes, and cancer. REVIEW OF SYSTEMS: Negative except for the above-mentioned complaints. PHYSICAL EXAMINATION: GENERAL: The patient is a pleasant 77-year-old female who was cooperative, alert and oriented. She was in no distress at rest. Her weight is 56.7 with a BMI of 22.9. VITAL SIGNS: Temperature is 36.6. HEENT: Eye exam suggests cataract formation. Nares were clear. Mouth exam was unremarkable. NECK: Palpation of the neck reveals no lymph nodes. HEART: Heart rate was 68 per minute. The rhythm is regular. Blood pressure 151/79. LUNGS: Auscultation of the lung martin revealed significantly diminished breath sounds posteriorly bilaterally. There was a large amount of subcutaneous edema in the lower chest and in the upper area of the back in the lumbar region. This is readily palpable and quite deep. There is some egophony noted. Respiratory rate was 18 breaths per minute and not labored. Saturation was 94% on room air. CHEST: Inspection of the abdomen reveals a scar from prior surgery. Bowel sounds were present. There was no focal tenderness to palpation of the abdomen. No definite mass was palpable. EXTREMITIES: Reveal about +2 edema of both lower extremities from the mid tibia on downward. There was no cyanosis or clubbing. IMAGING DATA: CAT scan of the chest on July 15 showed no evidence of pulmonary emboli. There are moderate bilateral pleural effusions with underlying atelectasis. There was no evidence of pneumonic infiltrate. Generalized anasarca was visualized. LABORATORY DATA: White count is 5.48, hemoglobin 9.7 and platelets 197,000. Coags were normal. Urinalysis showed 3+ blood, greater than 30 wbc's, 10-30 rbc's, 1+ bacteria, and calcium oxalate crystals. Electrolytes show sodium 144, potassium 4.1, chloride 112, and bicarbonate 27. The BUN is 15 with a creatinine of 1.08. The albumin was only 1.9. Globulin was 2.0 for a total protein of 3.9. Liver functions show AST elevated at 81, it had been as high as 135. ALT was normal today at 46 and it had been 77. Calcium is 7.0. IMPRESSION: 1. Bilateral pleural effusions. 2. Shortness of breath. 3. Pancreatic cancer. COMMENTS AND RECOMMENDATIONS: The patient has had a paracentesis. The pathology from that did not reveal any malignant cells. She has markedly low albumin and total protein. This could be a contributing factor as to the reason for the effusions. Cannot exclude a malignant effusion obviously. I am going to discuss the case with Dr. Solorio to see if he feels it would be appropriate to do thoracentesis. If so, hopefully we can get this done tomorrow. Thank you for asking me to assist in her care.
[2017-07-17 19:27] VITALS: BP 148/76; PULSE 76; TEMP 36.5; O2SAT 93
[2017-07-17] MEDS: CEFTRIAXONE SOD INJ 1 GM in DEXTROSE 5% ADD-VANTAGE 50ML 50 ML IV SCH (20:01)
[2017-07-17] MEDS: ASPIRIN 81 MG ECTAB PO SCH (20:55)
[2017-07-17] MEDS: FAMOTIDINE 20 MG TAB PO SCH (20:55)
[2017-07-17] MEDS ORDERED: PANTOprazole SOD 40 MG TAB PO SCH (21:00)
[2017-07-17 23:40] VITALS: BP 156/72; PULSE 76; TEMP 36.6; O2SAT 92
[2017-07-18 04:39] VITALS: BP 152/68; PULSE 72; TEMP 36.3; O2SAT 92
[2017-07-18 07:36] VITALS: BP 176/75; PULSE 66; TEMP 36.3; O2SAT 93
[2017-07-18] MEDS: CARVEDILOL 12.5 MG TAB PO SCH (07:54)
[2017-07-18] MEDS: POTASSIUM CHLORIDE 10 MEQ TABCR PO SCH (07:54)
[2017-07-18] MEDS: ASCORBIC ACID 500 MG TAB PO SCH (07:54)
[2017-07-18] MEDS: SPIRONOLACTONE 100 MG TAB PO SCH (07:55)
[2017-07-18] MEDS: PANCREAZE (LIPASE 10,500U) CAP PO SCH ×2 (07:55→12:46)
[2017-07-18] MEDS: ATORVASTATIN 40 MG TAB PO SCH (07:55)
[2017-07-18] MEDS: LACTOBACILLUS ACIDOPHILUS (FLORANEX) TAB PO SCH (07:55)
[2017-07-18] MEDS: FUROSEMIDE 20 MG TAB PO SCH (07:55)
[2017-07-18] MEDS: MULTIVITAMIN TAB PO SCH (07:55)
[2017-07-18] MEDS: FAMOTIDINE 20 MG TAB PO SCH (07:56)
[2017-07-18 08:24] LABS: ALBUMIN 1.9 gm/dl (3.4-5.0); CALCIUM 7.2 mg/dl (8.5-10.1); CREATININE 1.05 mg/dl (0.60-1.20); POTASSIUM 3.9 mmol/L (3.5-5.1)
[2017-07-18 11:21] VITALS: BP 150/77; PULSE 72; TEMP 36.4; O2SAT 92
[2017-07-18 12:20] VITALS: BP 169/89; PULSE 87; TEMP 37; O2SAT 94
--- NOTE | 2017-07-18 12:26 | Gastroenterology Progress Note ---
Progress Note Date of Service: Jul 18, 2017 Subjective Pt evaluation today including: conversation w/ patient, physical exam, chart review, lab review, review of studies, review of inpatient medication list Ms. Calvo is a 77 yr old female with pancreatic cancer S/P Whipple undergoing chemotherapy, admitted for SOB, pleural effusion, fluid overload and new ascites. High SAAG (serum 1.9 - ascitic fluid -0.8) = 1.1.suggestive of ascites from cirrhosis. Cytology negative for malignancy. No evidence of SBP on fluid analysis. I spoke with radiology (Dr. Jacobs) who reviewed chest CTA done during this admission. These films suggest the presence of liver cirrhosis. Review of Systems Constitutional: No fever Respiratory: No cough Cardiac: No chest pain Abdomen: + problem reported (ascites), No pain, No nausea, No vomiting, No diarrhea Female : No dysuria Neuro: No memory loss Psych: No depression symptoms Heme: No abnormal bleeding/bruising Endo: No fatigue Skin: No rash Medications Current Inpatient Medications Medications (Trade) Dose Ordered Sig/Shakira Route Start Time Stop Time Status Last Admin Dose Admin Ioversol (Optiray 320) 125 ml UD PRN IV 07/15/17 10:30 07/19/17 10:29 Acetaminophen (Tylenol Tab) 650 mg Q4H PRN PO 07/15/17 14:15 08/14/17 14:14 Ondansetron HCl (Zofran Inj) 4 mg Q6H PRN IV 07/15/17 14:15 08/14/17 14:14 Nitroglycerin (Nitrostat Tab) 0.4 mg UD PRN SL 07/15/17 14:15 08/14/17 14:14 Polyethylene (Miralax Powder Packet) 17 gm DAILY PRN PO 07/15/17 14:15 08/14/17 14:14 Aspirin (Ecotrin Tab) 81 mg QPM PO 07/15/17 21:00 08/14/17 20:59 07/17/17 20:55 81 MG Atorvastatin Calcium (Lipitor Tab) 40 mg DAILY PO 07/16/17 09:00 08/15/17 08:59 07/18/17 07:55 40 MG Carvedilol (Coreg Tab) 12.5 mg BID PO 07/15/17 21:00 08/14/17 20:59 07/18/17 07:54 12.5 MG Multivitamins (Multivitamin Tab) 1 tab QAM PO 07/16/17 09:00 08/15/17 08:59 07/18/17 07:55 1 TAB Tramadol HCl (Ultram Tab) 50 mg Q8H PRN PO 07/15/17 15:00 08/14/17 14:59 Ascorbic Acid (Vitamin C Tab) 1,000 mg BID PO 07/15/17 21:00 08/14/17 20:59 07/18/17 07:54 1,000 MG Potassium Chloride (Klor-Con M10) 10 meq DAILY PO 07/16/17 09:00 08/15/17 08:59 07/18/17 07:54 10 MEQ Lactobacillus Acidophilus (Floranex Tab) 1 tab DAILY PO 07/16/17 09:00 08/15/17 08:59 07/18/17 07:55 1 TAB Heparin Sodium (Porcine) (Heparin 100 Unit/ml 5ml Flush) 5 ml PRN PRN IV 07/15/17 16:15 08/14/17 16:14 07/18/17 07:49 5 ML Ceftriaxone Sodium 1 gm/ Dextrose 50 ml @ 100 mls/hr Q24H IV 07/15/17 20:00 07/20/17 19:59 07/17/17 20:01 100 MLS/HR Furosemide (Lasix Tab) 40 mg DAILY PO 07/17/17 09:00 08/15/17 08:59 07/18/17 07:55 40 MG Spironolactone (Aldactone Tab) 100 mg DAILY PO 07/17/17 09:00 08/15/17 08:59 07/18/17 07:55 100 MG Amylase/Lipase/ Protease (Pancreaze (Lipase 10,500U) Cap) 1 cap QID PO 07/16/17 21:00 08/15/17 20:59 07/18/17 07:55 1 CAP Dicyclomine HCl (Bentyl Tab) 10 mg TID PRN PO 07/17/17 10:30 08/16/17 10:29 Famotidine (Pepcid Tab) 20 mg BID PO 07/17/17 21:00 08/16/17 20:59 07/18/17 07:56 20 MG Objective Vital Signs Date Time Temp Pulse Resp B/P (MAP) Pulse Ox O2 Delivery O2 Flow Rate FiO2 07/18/17 12:00 Room Air 07/18/17 11:21 36.4 72 20 150/77 (101) 92 07/18/17 08:00 Room Air 07/18/17 07:36 36.3 66 18 176/75 (108) 93 07/18/17 04:39 36.3 72 18 152/68 (96) 92 Room Air 07/18/17 04:00 Room Air 07/18/17 00:00 Room Air 07/17/17 23:40 36.6 76 18 156/72 (100) 92 Room Air 07/17/17 20:00 Room Air 07/17/17 19:27 36.5 76 20 148/76 (100) 93 Room Air 07/17/17 16:00 Room Air 07/17/17 15:34 36.6 68 18 151/79 (103) 94 Room Air Physical Exam General Appearance: no apparent distress Neck: thyroid normal Respiratory/Chest: lungs clear Cardiovascular: regular rate, rhythm, no JVD, no murmur Abdomen: non tender, soft Extremities: + pertinent finding (trace bilat lower edema - pt says much improved) Neurologic/Psych: alert, normal mood/affect, oriented x 3 Skin: no jaundice Laboratory Results Last 24 Hours Test 07/18/17 00:00 07/18/17 07:44 Sodium Level 144 mmol/L Potassium Level 3.9 mmol/L Chloride Level 111 mmol/L Carbon Dioxide Level 25 mmol/L Anion Gap 8.0 mmol/L Blood Urea Nitrogen 16 mg/dl Creatinine 1.05 mg/dl Est Creatinine Clear Calc Drug Dose 34.4 ml/min Estimated GFR () 58.5 Estimated GFR (Non- 50.5 BUN/Creatinine Ratio 15.1 Random Glucose 78 mg/dl Calcium Level 7.2 mg/dl Total Bilirubin 0.4 mg/dl Aspartate Amino Transf (AST/SGOT) 96 U/L Alanine Aminotransferase (ALT/SGPT) 48 U/L Alkaline Phosphatase 146 U/L Total Protein 4.0 gm/dl Albumin 1.9 gm/dl Globulin 2.1 gm/dl Albumin/Globulin Ratio 0.9 Assessment and Plan Ms. Calvo is a 77 yr old female S/P Whipple for pancreatic cancer undergoing chemotherapy. New ascites most likely a result of cirrhosis. Plan: 1. Continue diuretics: furosemide 40mg daily and spironolactone 100mg daily. 2. Agree with pleuracentesis and will watch for path/cytology results on that fluid. 3. OP GI f/u for management of cirrhosis.
[2017-07-18 15:00] VITALS: BP 177/82; PULSE 72; TEMP 36.6; O2SAT 94
--- NOTE | 2017-07-18 15:01 | Pulmonology Progress Note ---
Pulmonary Progress Note Date of Service Jul 18, 2017. Attending Dr. Solorio Subjective Patient still notes dyspnea on exertion but is doing well at rest. Objective Patient doing well at rest we had a full conversation she was able sit up in bed had no signs of tachypnea or accessory muscle use. Vital signs: Stable on room air Cardiac: S1-S2 distant heart sounds regular rate and rhythm Respiratory: Decreased breath sounds bilaterally at the bases Thoracic ultrasound: Bilateral thoracic ultrasound was performed with good lung sliding/current drop-off sign on both hemithoraces up against the diaphragms On the right side there was a notable amount of subdiaphragmatic fluid surrounding the liver On the left side there was minimal subdiaphragmatic fluid Assessment & Plan 77-year-old female with increasing shortness of breath a diagnosis of pancreatic CA status post Whipple's procedure 11/2015 with signs of pleural effusions via CT: 1. Pleural Effusions: In the upright position bilateral ultrasonic evaluation of the patient's hemithoraces was performed. Both sides had notable lung sliding as well as drawn current sign and no signs of pleural effusion were noted in either hemithoraces. There was notable subdiaphragmatic fluid right much greater than left. At this time thoracentesis is not indicated as there is no signs by ultrasonic evaluation of a pleural effusion. Sign off: At this time the Pulmonary service will sign off is no pleural effusions are noted. Data Medications: Current Inpatient Medications Medications (Trade) Dose Ordered Sig/Shakira Route Start Time Stop Time Status Last Admin Dose Admin Ioversol (Optiray 320) 125 ml UD PRN IV 07/15/17 10:30 07/19/17 10:29 Acetaminophen (Tylenol Tab) 650 mg Q4H PRN PO 07/15/17 14:15 08/14/17 14:14 Ondansetron HCl (Zofran Inj) 4 mg Q6H PRN IV 07/15/17 14:15 08/14/17 14:14 Nitroglycerin (Nitrostat Tab) 0.4 mg UD PRN SL 07/15/17 14:15 08/14/17 14:14 Polyethylene (Miralax Powder Packet) 17 gm DAILY PRN PO 07/15/17 14:15 08/14/17 14:14 Aspirin (Ecotrin Tab) 81 mg QPM PO 07/15/17 21:00 08/14/17 20:59 07/17/17 20:55 81 MG Atorvastatin Calcium (Lipitor Tab) 40 mg DAILY PO 07/16/17 09:00 08/15/17 08:59 07/18/17 07:55 40 MG Carvedilol (Coreg Tab) 12.5 mg BID PO 07/15/17 21:00 08/14/17 20:59 07/18/17 07:54 12.5 MG Multivitamins (Multivitamin Tab) 1 tab QAM PO 07/16/17 09:00 08/15/17 08:59 07/18/17 07:55 1 TAB Tramadol HCl (Ultram Tab) 50 mg Q8H PRN PO 07/15/17 15:00 08/14/17 14:59 Ascorbic Acid (Vitamin C Tab) 1,000 mg BID PO 07/15/17 21:00 08/14/17 20:59 07/18/17 07:54 1,000 MG Potassium Chloride (Klor-Con M10) 10 meq DAILY PO 07/16/17 09:00 08/15/17 08:59 07/18/17 07:54 10 MEQ Lactobacillus Acidophilus (Floranex Tab) 1 tab DAILY PO 07/16/17 09:00 08/15/17 08:59 07/18/17 07:55 1 TAB Heparin Sodium (Porcine) (Heparin 100 Unit/ml 5ml Flush) 5 ml PRN PRN IV 07/15/17 16:15 08/14/17 16:14 07/18/17 07:49 5 ML Ceftriaxone Sodium 1 gm/ Dextrose 50 ml @ 100 mls/hr Q24H IV 07/15/17 20:00 07/20/17 19:59 07/17/17 20:01 100 MLS/HR Furosemide (Lasix Tab) 40 mg DAILY PO 07/17/17 09:00 08/15/17 08:59 07/18/17 07:55 40 MG Spironolactone (Aldactone Tab) 100 mg DAILY PO 07/17/17 09:00 08/15/17 08:59 07/18/17 07:55 100 MG Amylase/Lipase/ Protease (Pancreaze (Lipase 10,500U) Cap) 1 cap QID PO 07/16/17 21:00 08/15/17 20:59 07/18/17 12:46 1 CAP Dicyclomine HCl (Bentyl Tab) 10 mg TID PRN PO 07/17/17 10:30 08/16/17 10:29 Famotidine (Pepcid Tab) 20 mg BID PO 07/17/17 21:00 08/16/17 20:59 07/18/17 07:56 20 MG I & O: 24-Hour Column 07/19/17 07:59 Intake Total 260 ml Balance 260 ml Vital Signs: Date Time Temp Pulse Resp B/P (MAP) Pulse Ox O2 Delivery O2 Flow Rate FiO2 07/18/17 12:20 37.0 87 20 169/89 (115) 94 07/18/17 12:00 Room Air 07/18/17 11:21 36.4 72 20 150/77 (101) 92 07/18/17 08:00 Room Air 07/18/17 07:36 36.3 66 18 176/75 (108) 93 07/18/17 04:39 36.3 72 18 152/68 (96) 92 Room Air 07/18/17 04:00 Room Air 07/18/17 00:00 Room Air 07/17/17 23:40 36.6 76 18 156/72 (100) 92 Room Air 07/17/17 20:00 Room Air 07/17/17 19:27 36.5 76 20 148/76 (100) 93 Room Air 07/17/17 16:00 Room Air 07/17/17 15:34 36.6 68 18 151/79 (103) 94 Room Air Laboratory Results: Last 24 Hours Test 07/18/17 00:00 07/18/17 07:44 Sodium Level 144 mmol/L Potassium Level 3.9 mmol/L Chloride Level 111 mmol/L Carbon Dioxide Level 25 mmol/L Anion Gap 8.0 mmol/L Blood Urea Nitrogen 16 mg/dl Creatinine 1.05 mg/dl Est Creatinine Clear Calc Drug Dose 34.4 ml/min Estimated GFR () 58.5 Estimated GFR (Non- 50.5 BUN/Creatinine Ratio 15.1 Random Glucose 78 mg/dl Calcium Level 7.2 mg/dl Total Bilirubin 0.4 mg/dl Aspartate Amino Transf (AST/SGOT) 96 U/L Alanine Aminotransferase (ALT/SGPT) 48 U/L Alkaline Phosphatase 146 U/L Total Protein 4.0 gm/dl Albumin 1.9 gm/dl Globulin 2.1 gm/dl Albumin/Globulin Ratio 0.9
--- NOTE | 2017-07-18 16:00 | Progress Note ---
Medicine Progress Note Date & Time of Visit: Jul 18, 2017 at 15:45. Subjective Pt was seen and examined Lying in bed with no distress Pt said that she has SOB mostly on exertion Pt said would like to go home today after the thoracentesis Denies any fever, palpitation, dizziness and chest pain Objective Last 8 Hrs Date Time Temp Pulse Resp B/P (MAP) Pulse Ox O2 Delivery O2 Flow Rate FiO2 07/18/17 15:00 36.6 72 20 177/82 (113) 94 07/18/17 12:20 37.0 87 20 169/89 (115) 94 07/18/17 12:00 Room Air 07/18/17 11:21 36.4 72 20 150/77 (101) 92 07/18/17 08:00 Room Air Physical Exam: General- No acute distress Head- atraumatic Eyes- PERRL, EOMI ENT- oropharynx clear Neck- supple, no JVD Lungs- Decrease BS at base Heart- regular rhythm Abdomen- normal bowel sounds, ascites Extremities- +2edema Neuro- alert, oriented, PERRL, EOMI Skin- warm & dry Laboratory Results: Last 24 Hours Test 07/18/17 00:00 07/18/17 07:44 Sodium Level 144 mmol/L Potassium Level 3.9 mmol/L Chloride Level 111 mmol/L Carbon Dioxide Level 25 mmol/L Anion Gap 8.0 mmol/L Blood Urea Nitrogen 16 mg/dl Creatinine 1.05 mg/dl Est Creatinine Clear Calc Drug Dose 34.4 ml/min Estimated GFR () 58.5 Estimated GFR (Non- 50.5 BUN/Creatinine Ratio 15.1 Random Glucose 78 mg/dl Calcium Level 7.2 mg/dl Total Bilirubin 0.4 mg/dl Aspartate Amino Transf (AST/SGOT) 96 U/L Alanine Aminotransferase (ALT/SGPT) 48 U/L Alkaline Phosphatase 146 U/L Total Protein 4.0 gm/dl Albumin 1.9 gm/dl Globulin 2.1 gm/dl Albumin/Globulin Ratio 0.9 Date/Time Source Procedure Growth Status 07/18/17 00:00 Stool C.difficile Toxin B Gene (PCR) - Final Complete 07/18/17 00:00 Stool Shiga Toxin Test Pending Received 07/18/17 00:00 Stool Stool Culture Pending Received Assessment & Plan ASCITES Secondary to pancreatic CA and chemo tx. CT showed generalized anasarca and large ascites within visualized portions of the upper abdomen. s/p paracentesis where 1.5 L removed SAAG was >1.1 possible the ascites might be related to cirrhosis Ascites culture no growth GI on board Continue lasix 40mg daily and spironolactone 100mg daily ascites cultures and gram stain no growth ascites cytology negative Continue monitor BMP case discussed with Jorge LENZ from GI standpoint to discharge home Follow up with GI as an outpatient for the management of the cirrhosis DYSPNEA Pleural effusion CT showed moderate bilateral pleural effusions Continue diuretic therapy s/p paracentesis were 1.5 L ascites fluid removed Repeat CXR today showed layering pleural effusions with bibasilar atelectasis pulmonary consulted Case discussed with Dr. Solorio Was unable to proceed with thoracentesis since u/s did not indicate pleural effusion that requires to tap DIARRHEA Unable to check for Cdiff due to stools sample was formed Improved ELEVATED TROPONIN Troponin on admission 0.05 Trop trending down wnl EKG showed no ischemic changes Denies any chest pain Continue statin, asa and coreg ELEVATED LIVER ENZYMES Possible related to recent chemo liver enzymes trending down continue monitor Improved UTI U/A: moderate leukocytosis, >30 WBC, 10-30 RBC, >30 epithelial. Urine cx growth more than 3 organisms possible contamination Received Rocephin x 3days Hx PANCREATIC CANCER Last chemo was 06/26/17 Continue Creon Continue follow with oncology HYPOKALEMIA K stable Continue monitor BMP HX CAD continue ASA, Lipitor, Coreg HTN BP stable Hx PAROXYSMAL A-FIB Rate control on NSR continue beta donnie Not on anticoagulant DVT PROPHYLAXIS SCD's Consider anticoagulant if stays for another 24hs in the hospital DISPOSITION Will discharge home today CODE STATUS DNR Current Inpatient Medications: Current Inpatient Medications Medications (Trade) Dose Ordered Sig/Shakira Route Start Time Stop Time Status Last Admin Dose Admin Ioversol (Optiray 320) 125 ml UD PRN IV 07/15/17 10:30 07/19/17 10:29 Acetaminophen (Tylenol Tab) 650 mg Q4H PRN PO 07/15/17 14:15 08/14/17 14:14 Ondansetron HCl (Zofran Inj) 4 mg Q6H PRN IV 07/15/17 14:15 08/14/17 14:14 Nitroglycerin (Nitrostat Tab) 0.4 mg UD PRN SL 07/15/17 14:15 08/14/17 14:14 Polyethylene (Miralax Powder Packet) 17 gm DAILY PRN PO 07/15/17 14:15 08/14/17 14:14 Aspirin (Ecotrin Tab) 81 mg QPM PO 07/15/17 21:00 08/14/17 20:59 07/17/17 20:55 81 MG Atorvastatin Calcium (Lipitor Tab) 40 mg DAILY PO 07/16/17 09:00 08/15/17 08:59 07/18/17 07:55 40 MG Carvedilol (Coreg Tab) 12.5 mg BID PO 07/15/17 21:00 08/14/17 20:59 07/18/17 07:54 12.5 MG Multivitamins (Multivitamin Tab) 1 tab QAM PO 07/16/17 09:00 08/15/17 08:59 07/18/17 07:55 1 TAB Tramadol HCl (Ultram Tab) 50 mg Q8H PRN PO 07/15/17 15:00 08/14/17 14:59 Ascorbic Acid (Vitamin C Tab) 1,000 mg BID PO 07/15/17 21:00 08/14/17 20:59 07/18/17 07:54 1,000 MG Potassium Chloride (Klor-Con M10) 10 meq DAILY PO 07/16/17 09:00 08/15/17 08:59 07/18/17 07:54 10 MEQ Lactobacillus Acidophilus (Floranex Tab) 1 tab DAILY PO 07/16/17 09:00 08/15/17 08:59 07/18/17 07:55 1 TAB Heparin Sodium (Porcine) (Heparin 100 Unit/ml 5ml Flush) 5 ml PRN PRN IV 07/15/17 16:15 08/14/17 16:14 07/18/17 07:49 5 ML Ceftriaxone Sodium 1 gm/ Dextrose 50 ml @ 100 mls/hr Q24H IV 07/15/17 20:00 07/20/17 19:59 07/17/17 20:01 100 MLS/HR Furosemide (Lasix Tab) 40 mg DAILY PO 07/17/17 09:00 08/15/17 08:59 07/18/17 07:55 40 MG Spironolactone (Aldactone Tab) 100 mg DAILY PO 07/17/17 09:00 08/15/17 08:59 07/18/17 07:55 100 MG Amylase/Lipase/ Protease (Pancreaze (Lipase 10,500U) Cap) 1 cap QID PO 07/16/17 21:00 08/15/17 20:59 07/18/17 12:46 1 CAP Dicyclomine HCl (Bentyl Tab) 10 mg TID PRN PO 07/17/17 10:30 08/16/17 10:29 Famotidine (Pepcid Tab) 20 mg BID PO 07/17/17 21:00 08/16/17 20:59 07/18/17 07:56 20 MG
[2017-07-18] MEDS ORDERED: SPRN100 PO (16:04)
[2017-07-18] MEDS ORDERED: FURO40TA3 PO (16:04)
--- NOTE | 2017-07-18 16:12 | Discharge Instructions ---
Discharge Instructions Date of Service Jul 18, 2017. Admission Reason for Admission: Ascites, Sob Discharge Discharge Diagnosis / Problem: ASCITES, DYSPNEA, ELEVATED LIVER ENZYMES, Hx PANCREATIC CANCER Discharge Goals Goal(s): Decrease discomfort, Improve function, Improve disease control Activity Recommendations Activity Limitations: resume your previous activity ( TOLERATED) . Instructions / Follow-Up Instructions / Follow-Up FOLLOW UP WITH YOUR PRIMARY CARE PROVIDER JEZ JUDD ON 07/22 @ 9:45 AM FOLLOW UP WITH ONCOLOGY DR. HERNANDEZ (PLEASE CALL TO SCHEDULE FOR THE APPOINTMENT) FOLLOW UP WITH GASTROENTEROLOGY FOR THE ASCITES ( YOUR PROVIDER WILL ARRANGE FOR THE REFERRAL) FUROSEMIDE INCREASED TO 40MG DAILY AND SPIRONOLACTONE INCREASED TO 100MG DAILY CHECK CMP WITHIN 1 WEEK TO MONITOR LIVER ENZYMES, ELECTROLYTES AND RENAL FUNCTION. FOLLOW A LOW SALT DIET FALL PRECAUTION Current Hospital Diet Patient's current hospital diet: Low Sodium Diet (2gm Na), AHA Diet (Heart Healthy) Discharge Diet Recommended Diet: AHA Diet (Heart Healthy), Low Sodium Diet (2gm Na) Pending Studies Studies pending at discharge: no Medical Emergencies . Who to Call and When: Medical Emergencies: If at any time you feel your situation is an emergency, please call 911 immediately. . Non-Emergent Contact Non-Emergency issues call your: Primary Care Provider Call Non-Emergent contact if: you have a fever, you have any medication questions . . "Provider Documentation" section prepared by Tanya Almonte. . VTE Core Measure Inpt VTE Proph given/why not?: SCD's
[2017-07-18 16:16] VITALS: BP 177/82; PULSE 72; TEMP 36.6; O2SAT 94
--- NOTE | 2017-07-18 19:49 | Discharge Summary ---
Discharge Summary Date of Service Jul 18, 2017. Discharge Summary Admission Date: Jul 15, 2017 at 14:04 Discharge Date: Jul 18, 2017 Discharge Disposition: Home Principal Diagnosis: ASCITES Secondary Diagnoses/Problems: DYSPNEA ELEVATED LIVER ENZYMES Hx PANCREATIC CANCER ELEVATED TROPONIN HYPOKALEMIA CAD HTN HX P. AFIB Procedures: [~ rep ct add3]] ULTRASOUND GUIDED THERAPEUTIC AND DIAGNOSTIC PARACENTESIS CLINICAL HISTORY: Ascites. COMPARISON STUDY: No previous studies for comparison. PROCEDURE: The risks, benefits, and alternatives to the procedure were discussed with the patient including the risk of bleeding, infection and injury to adjacent structures. The patient agreed to the procedure and informed written consent was obtained. Following real-time ultrasound localization, the skin of the left lower quadrant was prepped and draped. Following local anesthesia with Xylocaine, the sheath paracentesis needle was inserted and approximately 1.5 liters of straw-colored fluid was removed by vacuum suction. 1 L of fluid was sent to laboratory for analysis as ordered. The patient tolerated the procedure well and no immediate complications were evident. IMPRESSION: Ultrasound-guided paracentesis with removal of 1.5 liters of ascites. Electronically signed by: Momo Araujo M.D. 07/16/2017 1:05 PM [~ rep ct add3]] CT ANGIOGRAPHY OF THE CHEST, PULMONARY EMBOLUS PROTOCOL CLINICAL HISTORY: Chest pain. Difficulty breathing. COMPARISON STUDY: Chest CT March 13, 2011 and chest radiograph July 15, 2017. TECHNIQUE: The patient was premedicated for IV dye allergy. Following IV administration of 64 mL of Optiray-320, helical axial images of the chest were obtained utilizing the pulmonary embolus protocol. Maximal intensity projections and sagittal and coronal reformats were viewed on an independent 3D workstation. IV contrast was administered without complication. A dose lowering technique was utilized adhering to the principles of ALARA. CT DOSE: 162.06 mGy.cm FINDINGS: No pulmonary emboli are identified. There is no evidence of thoracic aortic dissection. The heart is mildly enlarged. Coronary stent is noted. There is no thoracic aortic dissection. There is no pericardial effusion. Moderate bilateral pleural effusions are noted. Associated airspace opacity reflects atelectasis. There is no consolidation to suggest pneumonia. There is no pneumothorax. There are no suspicious pulmonary nodules. Bony thorax is unremarkable. Visualized portions of the upper abdomen demonstrate suspected pneumobilia. There is a large amount of ascites within visualized portions of the upper abdomen. Generalized anasarca is noted. IMPRESSION: 1. No pulmonary emboli identified. 2. No thoracic aortic dissection. 3. Moderate bilateral pleural effusions with associated segmental atelectasis. 4. Generalized anasarca and large ascites within visualized portions of the upper abdomen. Electronically signed by: Momo Araujo M.D. 07/15/2017 12:45 PM Dictated Date/Time: 07/15/2017 12:36 PM [~ rep ct add3]] CT ANGIOGRAPHY OF THE CHEST, PULMONARY EMBOLUS PROTOCOL CLINICAL HISTORY: Chest pain. Difficulty breathing. COMPARISON STUDY: Chest CT March 13, 2011 and chest radiograph July 15, 2017. TECHNIQUE: The patient was premedicated for IV dye allergy. Following IV administration of 64 mL of Optiray-320, helical axial images of the chest were obtained utilizing the pulmonary embolus protocol. Maximal intensity projections and sagittal and coronal reformats were viewed on an independent 3D workstation. IV contrast was administered without complication. A dose lowering technique was utilized adhering to the principles of ALARA. CT DOSE: 162.06 mGy.cm FINDINGS: No pulmonary emboli are identified. There is no evidence of thoracic aortic dissection. The heart is mildly enlarged. Coronary stent is noted. There is no thoracic aortic dissection. There is no pericardial effusion. Moderate bilateral pleural effusions are noted. Associated airspace opacity reflects atelectasis. There is no consolidation to suggest pneumonia. There is no pneumothorax. There are no suspicious pulmonary nodules. Bony thorax is unremarkable. Visualized portions of the upper abdomen demonstrate suspected pneumobilia. There is a large amount of ascites within visualized portions of the upper abdomen. Generalized anasarca is noted. IMPRESSION: 1. No pulmonary emboli identified. 2. No thoracic aortic dissection. 3. Moderate bilateral pleural effusions with associated segmental atelectasis. 4. Generalized anasarca and large ascites within visualized portions of the upper abdomen. Electronically signed by: Momo Araujo M.D. 07/15/2017 12:45 PM Dictated Date/Time: 07/15/2017 12:36 PM Consultations: PULMONARY ONCOLOGY GASTRO Medication Reconciliation New Medications: Spironolactone (Spironolactone) 100 Mg Tab 100 MG PO DAILY for 30 Days, #30 TAB Changed Medications: Furosemide (Lasix) 40 Mg Tab 1 TAB PO DAILY for 30 Days, #30 TAB (Changed from: Furosemide (Lasix) 20 Mg Tab 20 Mg PO DAILY) Continued Medications: Ascorbic Acid (Vitamin C) 1,000 Mg Tab 1000 MG PO BID Aspirin Enteric Coated (Ecotrin Or Generic) 81 Mg Tab 81 MG PO QPM, 0 Refills Atorvastatin (Lipitor) 40 Mg Tab 40 MG PO DAILY for 30 Days, #30 TAB 5 Refills Carvedilol (Carvedilol) 25 Mg Tab 12.5 MG PO BID Diphenhydramine Hcl (Benadryl) 25 Mg Tab 25 MG PO HS PRN for Sleep Multiple Vitamin (Multi Vitamin) 1 Tab Tab 1 TAB PO QAM Nitroglycerin (Nitrostat) 0.4 Mg Sub 0.4 MG UT UD PRN for Chest Pain, BTL PLACE ONE TABLET UNDER THE TONGUE EVERY 5 MINUTES FOR UO TO 3 DOSES IF NEEDED FOR CHEST PAIN. Ondansetron Hcl (Zofran) 8 Mg Tab 8 MG PO PRN PRN for Nausea, TAB Pancrelipase (Lipase-Protease- (Pancreaze) 1 Cap Cap 59316 UNITS PO QID Potassium Chloride (Potassium Chloride Er) 10 Meq Tab 10 MEQ PO DAILY for 90 Days, #90 TAB 1 Refill Probiotic Product (Probiotic) 1 Cap Cap 1 CAP PO DAILY Tramadol (Ultram) 50 Mg Tab 50 MG PO Q8H PRN for Pain, TAB Discontinued Medications: Spironolactone (Aldactone) 50 Mg Tab 50 MG PO DAILY for 30 Days, #30 TAB 3 Refills Admission Information HPI (per Admitting provider): Pt is 77 y/o F with PMH HTN, GERD, a-fib, CAD s/p stent, pancreatic CA receiving chemo, last dose 06/26/17 presented to ER with c/o increasing SOB and increasing edema. Pt reports past month with increased SOB and increased LE edema and noted larger abdomen. SOB with few steps now. Following with Dr Maynard - oncology and [facility]. Was scheduled to have paracentesis in 3 days. She reports non-productive cough x 1-2 weeks. Reports gained approx 25 pounds over past 1-2 months. She has had lasix increased to 20mg daily and spironolactone 50mg daily added and pt states no improvement of edema or SOB. Hx chronic intermittent diarrhea, denies any increased diarrhea. Denies melena, or hematochezia. Denies fever/chills, diaphoresis, N/V, ZAPIEN, dizziness, syncope, vision changes, neck pain, CP, orthopnea, palpitations, sore throat, choking, otalgia, rhinorrhea, abdominal pain, paresthesias, weakness, extremity weakness , extremity edema, rashes, urinary symptoms. In ER WBC: 6, K: 3.3. AST: 135, Alk phos: 227. Troponin 0.051. INR: 1.2. CT chest: no PE, mod bilateral pleural effusions, large ascites, generalized anasarca. 06/30/17: Hx MRI abd/liver with/without contrast: Moderate bilateral pleural effusions, large ascites, anasarca. benign appearing liver lesions. hepatitic stenosis. indeterminate T2 hyperintense lesion in L3, favoring a hemangioma given a likely correlate is present on 11/01/16 CT. Physical Exam (per Admitting): General Appearance: no apparent distress, + pertinent finding (chronic ill appearing) Head: normocephalic, atraumatic Eyes: normal inspection, PERRL, EOMI, sclerae normal ENT: hearing grossly normal, pharynx normal, + pertinent finding (mucous membranes moist) Neck: supple, no JVD, trachea midline Respiratory/Chest: chest non-tender, no respiratory distress, no accessory muscle use, + decreased breath sounds (bilateral bases) Cardiovascular: regular rate, rhythm Abdomen/GI: normal bowel sounds, non tender, + distended Back: no CVA tenderness Extremities/Musculoskelatal: non-tender (pedal pushes and pulls intact bilaterally, scale operator strength equal bilaterally), + pertinent finding (+pretibial edema) Neurologic/Psych: alert, normal mood/affect, oriented x 3 Skin: normal color, warm/dry Hospital Course ASCITES Secondary to pancreatic CA and chemo tx. CT showed generalized anasarca and large ascites within visualized portions of the upper abdomen. s/p paracentesis where 1.5 L removed SAAG was >1.1 possible the ascites might be related to cirrhosis Ascites culture no growth GI on board Continue lasix 40mg daily and spironolactone 100mg daily ascites cultures and gram stain no growth ascites cytology negative Continue monitor BMP case discussed with Jorge LENZ from GI standpoint to discharge home Follow up with GI as an outpatient for the management of the cirrhosis DYSPNEA Pleural effusion CT showed moderate bilateral pleural effusions Continue diuretic therapy s/p paracentesis were 1.5 L ascites fluid removed Repeat CXR today showed layering pleural effusions with bibasilar atelectasis pulmonary consulted Case discussed with Dr. Solorio Was unable to proceed with thoracentesis since u/s did not indicate pleural effusion that requires to tap DIARRHEA Unable to check for Cdiff due to stools sample was formed Improved ELEVATED TROPONIN Troponin on admission 0.05 Trop trending down wnl EKG showed no ischemic changes Denies any chest pain Continue statin, asa and coreg ELEVATED LIVER ENZYMES Possible related to recent chemo liver enzymes trending down continue monitor Improved ABNORMAL UA U/A: moderate leukocytosis, >30 WBC, 10-30 RBC, >30 epithelial. Urine cx growth more than 3 organisms possible contamination Received Rocephin x 3days Hx PANCREATIC CANCER Last chemo was 06/26/17 Continue Creon Continue follow with oncology HYPOKALEMIA K stable Continue monitor BMP HX CAD continue ASA, Lipitor, Coreg HTN BP stable Hx PAROXYSMAL A-FIB Rate control on NSR continue beta donnie Not on anticoagulant DVT PROPHYLAXIS SCD's Consider anticoagulant if stays for another 24hs in the hospital DISPOSITION Will discharge home today CODE STATUS DNR Total time spent on discharge = 35 MINUTES This includes examination of the patient, discharge planning, medication reconciliation, and communication with other providers. Discharge Instructions Discharge Instructions Date of Service Jul 18, 2017. Admission Reason for Admission: Ascites, Sob Discharge Discharge Diagnosis / Problem: ASCITES, DYSPNEA, ELEVATED LIVER ENZYMES, Hx PANCREATIC CANCER Discharge Goals Goal(s): Decrease discomfort, Improve function, Improve disease control Activity Recommendations Activity Limitations: resume your previous activity ( TOLERATED) . Instructions / Follow-Up Instructions / Follow-Up FOLLOW UP WITH YOUR PRIMARY CARE PROVIDER JEZ JUDD ON 07/22 @ 9:45 AM FOLLOW UP WITH ONCOLOGY DR. HERNANDEZ (PLEASE CALL TO SCHEDULE FOR THE APPOINTMENT) FOLLOW UP WITH GASTROENTEROLOGY FOR THE ASCITES ( YOUR PROVIDER WILL ARRANGE FOR THE REFERRAL) FUROSEMIDE INCREASED TO 40MG DAILY AND SPIRONOLACTONE INCREASED TO 100MG DAILY CHECK CMP WITHIN 1 WEEK TO MONITOR LIVER ENZYMES, ELECTROLYTES AND RENAL FUNCTION. FOLLOW A LOW SALT DIET FALL PRECAUTION Current Hospital Diet Patient's current hospital diet: Low Sodium Diet (2gm Na), AHA Diet (Heart Healthy) Discharge Diet Recommended Diet: AHA Diet (Heart Healthy), Low Sodium Diet (2gm Na) Pending Studies Studies pending at discharge: no Medical Emergencies . Who to Call and When: Medical Emergencies: If at any time you feel your situation is an emergency, please call 911 immediately. . Non-Emergent Contact Non-Emergency issues call your: Primary Care Provider Call Non-Emergent contact if: you have a fever, you have any medication questions . . "Provider Documentation" section prepared by Tanya Almonte. . VTE Core Measure Inpt VTE Proph given/why not?: SCD's Additional Copies To Gregg Hanna D.O.
== END 2017-07-18 17:10 | disposition home or self-care (01) | DRG 436 ==
LOC: C.EDB 09:53 → C.MED 14:04 → ENRESERV 14:26
PROVIDERS: ADMIT Family Medicine; ATTEND Internal Medicine
DX: C25.9 Malignant neoplasm of pancreas, unspecified (principal); J90 Pleural effusion, not elsewhere classified; R18.8 Other ascites; N39.0 Urinary tract infection, site not specified; J45.909 Unspecified asthma, uncomplicated; Z66 Do not resuscitate; I25.10 Atherosclerotic heart disease of native coronary artery without angina pectoris; E78.5 Hyperlipidemia, unspecified; E87.6 Hypokalemia; R00.0 Tachycardia, unspecified; K21.9 Gastro-esophageal reflux disease without esophagitis; I10 Essential (primary) hypertension; Z87.440 Personal history of urinary (tract) infections; Z86.73 Personal history of transient ischemic attack (TIA), and cerebral infarction without residual deficits; Z90.710 Acquired absence of both cervix and uterus; Z98.61 Coronary angioplasty status; Z80.9 Family history of malignant neoplasm, unspecified; Z83.3 Family history of diabetes mellitus; Z82.49 Family history of ischemic heart disease and other diseases of the circulatory system; Z84.1 Family history of disorders of kidney and ureter; Z87.891 Personal history of nicotine dependence; Z79.82 Long term (current) use of aspirin

== ENCOUNTER → 2017-09-12 | Outpatient (CLI) | payer OTHER ==
[~2017-09-12] MED LIST changes: +ATOR-24 PO; -ATOR80TA PO; -CARV12.5 PO; +CRG25 PO; -ESTROGEN TOP; -FAMO20TA11 PO; -KFL500HP PO; +MISCCAP80 PO; +ONDA-170 PO; -ONDA8TAB6 PO; +PANCCAP2 PO; +POTA-74 PO; -PROC1TAB5 PO; +SPRN100 PO
--- NOTE | 2017-09-12 10:59 | DIAGNOSTIC IMAGING REPORT ---
ASCITES-ABDOMEN LIMITED CLINICAL HISTORY: Ascites. Cancer of head of pancreas. Cirrhosis. COMPARISON STUDY: CT of the abdomen and pelvis February 11, 2013. TECHNIQUE: Sonography of the abdomen and pelvis was performed to evaluate for ascites. FINDINGS: A small amount of ascites is noted within the 4 quadrants of the abdomen and pelvis. IMPRESSION: Small amount of abdominal and pelvic ascites. Electronically signed by: Momo Araujo M.D. 09/12/2017 10:57 AM Dictated Date/Time: 09/12/2017 10:56 AM
== END | disposition home or self-care (01) ==
LOC: C.ULTR 10:20
PROVIDERS: ATTEND Physician Assistant
DX: C25.0 Malignant neoplasm of head of pancreas (principal); K74.60 Unspecified cirrhosis of liver